=== PATIENT | female | born 1940 | race Caucasian/White ===

== ENCOUNTER 2017-01-07 21:42 | Emergency (ER) | payer MEDICARE, MEDICAID ==
[2017-01-07] MEDS ORDERED: IPRATROPIUM/ALBUTEROL 0.5-2.5 MG/3 ML AMPUL NEB ONE (22:05)
[2017-01-07] MEDS ORDERED: PREDNISONE 20 MG TABLET PO ONE (22:05)
[2017-01-07] MEDS ORDERED: ALBUTEROL SULFATE 0.083% NEB 2.5 MG/3 ML AMPUL NEB SCH (22:20)
[2017-01-07] MEDS ORDERED: BENZONATATE 100 MG CAPSULE PO ONE (23:41)
[2017-01-07] MEDS ORDERED: ALBUTEROL SULFATE HFA (90 MCG/PUFF) 8 GM MDI (1 MDI/ER DISP) IH PRN (23:41)
--- NOTE | 2017-01-07 23:45 | ER Document Report ---
ED General - General Chief Complaint: Productive Cough Stated Complaint: COUGH Notes: Patient is a 76-year-old female with past history of lupus currently immune suppressed on prednisone who presents with 3 days of nasal congestion, postnasal drip, and a productive cough. States that the cough became worse today which prompted her to come to the emergency department. States she's had similar symptoms in the past when she has had upper respiratory illnesses. She has not tried anything to improve her symptoms. Nothing has been noted to worsen her symptoms. She was a smoker for several decades but did quit smoking approximately 2 years ago. She does not carry a diagnosis of COPD. She has not seen her primary care doctor regarding today's concerns. She denies any shortness of breath or chest pain. No vomiting, fever or altered mental status. TRAVEL OUTSIDE OF THE [place] IN LAST 30 DAYS: No - Related Data Allergies/Adverse Reactions: amoxicillin trihydrate [From Augmentin] Allergy (Verified 01/07/17 21:51) aspirin [Aspirin] Allergy (Verified 01/07/17 21:51) cephalexin monohydrate [From Keflex] Allergy (Verified 01/07/17 21:51) erythromycin base [Erythromycin Base] Allergy (Verified 01/07/17 21:51) NSAIDS (Non-Steroidal Anti-Inflamma [Nsaids] Allergy (Verified 01/07/17 21:51) Potassium Clavulanate * [From Augmentin] Allergy (Verified 01/07/17 21:51) Sulfa (Sulfonamide Antibiotics) Allergy (Verified 01/07/17 21:51) Past Medical History - General Information source: Patient - Social History Smoking Status: Former Smoker Chew tobacco use (# tins/day): No Frequency of alcohol use: Occasional Drug Abuse: None Lives with: Spouse/Significant other Family History: Reviewed & Not Pertinent Patient has suicidal ideation: No Patient has homicidal ideation: No - Past Medical History Cardiac Medical History: Reports: Hx Hypertension - when sick Pulmonary Medical History: Denies: Hx COPD Renal/ Medical History: Denies: Hx Peritoneal Dialysis GI Medical History: Reports: Hx Gastroesophageal Reflux Disease, Hx Irritable Bowel, Hx Ulcer Musculoskeltal Medical History: Reports Hx Arthritis, Reports Hx Fibromyalgia Past Surgical History: Reports: Hx Appendectomy, Hx Hysterectomy, Hx Orthopedic Surgery - back - Immunizations Hx Diphtheria, Pertussis, Tetanus Vaccination: No Review of Systems - Review of Systems Notes: Constitutional: Negative for fever. HENT: Negative for sore throat. Eyes: Negative for visual changes. Cardiovascular: Negative for chest pain. Respiratory: Negative for shortness of breath. Positive for cough Gastrointestinal: Negative for abdominal pain, vomiting or diarrhea. Genitourinary: Negative for dysuria. Musculoskeletal: Negative for back pain. Skin: Negative for rash. Neurological: Negative for headaches, weakness or numbness. 10 point ROS negative except as marked above and in HPI. Physical Exam - Vital signs Vitals: Temp Pulse Resp BP Pulse Ox 97.3 F 65 24 H 154/65 H 94 01/07/17 21:49 01/07/17 21:49 01/07/17 21:49 01/07/17 21:49 01/07/17 21:49 Patient was no longer tachypneic at time of assessment, respiratory rate was 14 Interpretation: Normal Notes: PHYSICAL EXAMINATION: GENERAL: Well-appearing, well-nourished and in no acute distress. HEAD: Atraumatic, normocephalic. EYES: Pupils equal round and reactive to light, extraocular movements intact, sclera anicteric, conjunctiva are normal. ENT: nares patent, oropharynx clear without exudates. Moist mucous membranes. NECK: Normal range of motion, supple without lymphadenopathy LUNGS: Expiratory wheezing in all lung mora without diminished air movement. No respiratory distress. No tachypnea. HEART: Regular rate and rhythm without murmurs ABDOMEN: Soft, nontender, normoactive bowel sounds. No guarding, no rebound. No masses appreciated. EXTREMITIES: Normal range of motion, no pitting or edema. No cyanosis. NEUROLOGICAL: No focal neurological deficits. Moves all extremities spontaneously and on command. PSYCH: Normal mood, normal affect. SKIN: Warm, Dry, normal turgor, no rashes or lesions noted. Course - Re-evaluation Re-evalutation: 01/07/17 23:42 Patient presents with a mild productive cough, nasal congestion and postnasal drip for the past 3 days. She has no known or diagnosed history of obstructive lung disease although was a smoker up until 2 years ago. Lung exam shows scattered wheezes in all lung mora but in no respiratory distress. Vitals within normal limits at time of my assessment. Chest x-ray clear without evidence of pneumonia. Patient's overall extremely well in appearance, laughing with me during examination. She was started on albuterol inhaler, a five-day course of prednisone given her apparent wheezing on exam and a suspect she has a likely underlying component of COPD. She also be given Tessalon Perles. At this time will discharge with return precautions and follow-up recommendations. Verbal discharge instructions given a the bedside and opportunity for questions given. Medication warnings reviewed. Patient is in agreement with this plan and has verbalized understanding of return precautions and the need for primary care follow-up in the next 24-72 hours. - Vital Signs Vital signs: Temp Pulse Resp BP Pulse Ox 97.5 F 70 18 152/65 H 93 01/08/17 00:03 01/08/17 00:03 01/08/17 00:03 01/08/17 00:03 01/08/17 00:03 - Diagnostic Test Radiology reviewed: Image reviewed, Reports reviewed Radiology results interpreted by me: 01/07/17 23:43 Chest x-ray: No acute infiltrate - EKG Interpretation by Me Additional EKG results interpreted by me: 01/07/17 23:43 Sinus rhythm. Rate 66. No ST elevations or depressions. QTC is 436. Discharge - Discharge Clinical Impression: Wheezing Upper respiratory infection Qualifiers: URI type: unspecified URI Qualified Code(s): J06.9 - Acute upper respiratory infection, unspecified Condition: Good Disposition: HOME, SELF-CARE Additional Instructions: Your symptoms are likely related to a viral infection. You also likely have a component of underlying chronic obstructive lung disease. You are being started a course of steroids and then should return to your normal dose of daily prednisone. Please also use albuterol inhaler every 2-4 hours as needed for shortness of breath. Please be sure to use the spacer with the albuterol inhaler. You can use the Tessalon Perles as prescribed for persistent coughing. Please return if you develop worsening shortness of breath, vomiting , fever greater than 101F, pass out, or have any other symptoms that are worrisome to you. Prescriptions: Benzonatate [Tessalon Perle 100 mg Capsule] 100 mg PO Q8HP PRN #40 cap PRN Reason: Prednisone [Deltasone 20 mg Tablet] 3 tab PO DAILY 5 Days Referrals: NIKKI VELOZ MD [Primary Care Provider] - Follow up in 3-5 days
[2017-01-08 00:23] VITALS: BP 152/65
--- NOTE | 2017-01-08 08:35 | EKG REPORT ---
SEVERITY:- ABNORMAL ECG - SINUS RHYTHM CONSIDER LEFT VENTRICULAR HYPERTROPHY PROBABLE INFERIOR INFARCT, OLD : Confirmed by: Ashia Doshi 08-Jan-2017 08:34:23
== END 2017-01-08 00:23 | disposition home or self-care (01) ==
LOC: ER 21:42
DX: J06.9 Acute upper respiratory infection, unspecified (principal); R06.2 Wheezing; R09.81 Nasal congestion; Z88.0 Allergy status to penicillin; Z88.6 Allergy status to analgesic agent; Z88.3 Allergy status to other anti-infective agents; Z88.2 Allergy status to sulfonamides; Z90.710 Acquired absence of both cervix and uterus; Z87.891 Personal history of nicotine dependence
CPT/HCPCS: 93005; 94640; 99284; 71020; 93010; A9270 ×3; J3490; J7512

== ENCOUNTER → 2017-01-15 | Outpatient (CLI) | payer MEDICARE, MEDICAID | LOC: OD 12:26 | PROVIDERS: ATTEND Family Medicine | DX: R05 Cough (principal) | CPT/HCPCS: 71020 ==

== ENCOUNTER 2018-03-30 16:05 | Emergency (ER) | payer MEDICARE, MEDICAID ==
--- NOTE | 2018-03-30 16:38 | ER Document Report ---
ED Medical Screen (RME) - General Chief Complaint: Urinary Retention Stated Complaint: URINARY ISSUE, SIDE PAIN Time Seen by Provider: 03/30/18 16:38 Mode of Arrival: Ambulatory Information source: Patient Notes: 77-year-old female presents to the emergency room with complaints of decreased urine output. She denies fever, chills, nausea vomiting. Patient does not appear in any significant distress in the ER. TRAVEL OUTSIDE OF THE [place] IN LAST 30 DAYS: No - Related Data Allergies/Adverse Reactions: amoxicillin trihydrate [From Augmentin] Allergy (Verified 03/30/18 16:06) aspirin [Aspirin] Allergy (Verified 03/30/18 16:06) cephalexin monohydrate [From Keflex] Allergy (Verified 03/30/18 16:06) erythromycin base [Erythromycin Base] Allergy (Verified 03/30/18 16:06) NSAIDS (Non-Steroidal Anti-Inflamma [Nsaids] Allergy (Verified 03/30/18 16:06) Potassium Clavulanate * [From Augmentin] Allergy (Verified 03/30/18 16:06) Sulfa (Sulfonamide Antibiotics) Allergy (Verified 03/30/18 16:06) Past Medical History - Past Medical History Cardiac Medical History: Reports: Hx Hypertension - when sick Pulmonary Medical History: Denies: Hx COPD Renal/ Medical History: Denies: Hx Peritoneal Dialysis GI Medical History: Reports: Hx Gastroesophageal Reflux Disease, Hx Irritable Bowel, Hx Ulcer Musculoskeltal Medical History: Reports Hx Arthritis, Reports Hx Fibromyalgia Past Surgical History: Reports: Hx Appendectomy, Hx Hysterectomy, Hx Orthopedic Surgery - back - Immunizations Hx Diphtheria, Pertussis, Tetanus Vaccination: No Physical Exam - Vital signs Vitals: Temp Pulse Resp BP Pulse Ox 97.9 F 63 18 151/78 H 99 03/30/18 16:15 03/30/18 16:15 03/30/18 16:15 03/30/18 16:15 03/30/18 16:15 Course - Vital Signs Vital signs: Temp Pulse Resp BP Pulse Ox 97.9 F 63 18 151/78 H 99 03/30/18 16:15 03/30/18 16:15 03/30/18 16:15 03/30/18 16:15 03/30/18 16:15 Doctor's Discharge - Discharge Referrals: NIKKI VELOZ MD [Primary Care Provider] - Follow up as needed
[2018-03-30 17:40] LABS: ALANINE AMINOTRANSFERASE 24 U/L (9-52); ALKALINE PHOSPHATASE 37 U/L (38-126); ANION GAP 12 (5-19); ASPARTATE AMINO TRANSFERASE 24 U/L (14-36); BILIRUBIN,DIRECT 0.3 mg/dL (0.0-0.4); BILIRUBIN,TOTAL 0.3 mg/dL (0.2-1.3); BLOOD UREA NITROGEN 15 mg/dL (7-20); CALCIUM 9.4 mg/dL (8.4-10.2); CARBON DIOXIDE 28 mmol/L (22-30); CHLORIDE 96 mmol/L (98-107); GLUCOSE 122 mg/dL (75-110); POTASSIUM 4.1 mmol/L (3.6-5.0); SODIUM 135.9 mmol/L (137-145); TOTAL PROTEIN 6.7 g/dL (6.3-8.2)
[2018-03-30 17:58] LABS: ABSOLUTE BASOPHILS # (AUTO) 0.1 10^3/uL (0.0-0.2); ABSOLUTE EOSINOPHILS # (AUTO) 0.1 10^3/uL (0.0-0.6); ABSOLUTE LYMPHOCYTES (AUTO) 1.8 10^3/uL (0.5-4.7); ABSOLUTE MONOCYTES (AUTO) 0.7 10^3/uL (0.1-1.4); ABSOLUTE NEUT (AUTO) 3.3 10^3/uL (1.7-8.2); BASOPHILS % (AUTO) 1.7 % (0-2); HEMATOCRIT 44.7 % (36.0-47.0); HEMOGLOBIN 15.5 g/dL (12.0-15.5); LYMPHOCYTES % (AUTO) 30.3 % (13-45); MEAN CORPUSCULAR HEMOGLOBIN 32.2 pg (27.0-33.4); MEAN CORPUSCULAR HGB CONC 34.7 g/dL (32.0-36.0); MEAN CORPUSCULAR VOLUME 93 fl (80-97); MONOCYTES % (AUTO) 11.1 % (3-13); PLATELET COUNT 224 10^3/uL (150-450); RED BLOOD COUNT 4.82 10^6/uL (3.72-5.28); RED CELL DISTRIBUTION WIDTH 13.5 % (11.5-14.0); SEGMENTED NEUTROPHILS % (AUTO) 54.9 % (42-78); TOTAL CELLS COUNTED % (AUTO) 100 %
--- NOTE | 2018-03-30 18:50 | ER Document Report ---
ED GI/ <CLARA TIJERINA - Last Filed: 03/30/18 21:25> - General Mode of Arrival: Ambulatory TRAVEL OUTSIDE OF THE [place] IN LAST 30 DAYS: No <MIKE RAMOS - Last Filed: 03/30/18 21:57> - General Chief Complaint: Urinary Retention Stated Complaint: URINARY ISSUE, SIDE PAIN Time Seen by Provider: 03/30/18 16:38 Notes: 77 year old female that presents to the ED today with complaints of possible urinary retention. Patient states that she normally urinates 3-4 times a night and she did not wake up at all last night to urinate. Patient states she has been drinking her normal amount of fluids. Patient also mentions a "nagging side pain for about 2 weeks. (MIKE RAMOS) - Related Data Allergies/Adverse Reactions: amoxicillin trihydrate [From Augmentin] Allergy (Verified 03/30/18 16:06) aspirin [Aspirin] Allergy (Verified 03/30/18 16:06) cephalexin monohydrate [From Keflex] Allergy (Verified 03/30/18 16:06) erythromycin base [Erythromycin Base] Allergy (Verified 03/30/18 16:06) NSAIDS (Non-Steroidal Anti-Inflamma [Nsaids] Allergy (Verified 03/30/18 16:06) Potassium Clavulanate * [From Augmentin] Allergy (Verified 03/30/18 16:06) Sulfa (Sulfonamide Antibiotics) Allergy (Verified 03/30/18 16:06) Past Medical History - General Information source: Patient - Social History Smoking Status: Current Every Day Smoker Cigarette use (# per day): Yes Chew tobacco use (# tins/day): No Frequency of alcohol use: None Drug Abuse: None Lives with: Family Family History: Reviewed & Not Pertinent Patient has suicidal ideation: No Patient has homicidal ideation: No - Past Medical History Cardiac Medical History: Reports: Hx Atrial Fibrillation, Hx Hypertension - when sick, Other - Von Willebrand's GI Medical History: Reports: Hx Gastroesophageal Reflux Disease, Hx Irritable Bowel, Hx Ulcer Musculoskeletal Medical History: Reports Hx Arthritis, Reports Hx Fibromyalgia, Reports Other - Lupus Past Surgical History: Reports: Hx Appendectomy, Hx Hysterectomy, Hx Orthopedic Surgery - back - Immunizations Hx Diphtheria, Pertussis, Tetanus Vaccination: No <MIKE RAMOS - Last Filed: 03/30/18 21:57> Review of Systems - Review of Systems Constitutional: No symptoms reported EENT: No symptoms reported Cardiovascular: No symptoms reported Respiratory: No symptoms reported Gastrointestinal: No symptoms reported Genitourinary: See HPI, Flank pain - "nagging side pain", Retention - ? Female Genitourinary: No symptoms reported Musculoskeletal: No symptoms reported Skin: No symptoms reported Hematologic/Lymphatic: No symptoms reported Neurological/Psychological: No symptoms reported -: Yes All other systems reviewed and negative <MIKE RAMOS - Last Filed: 03/30/18 21:57> Physical Exam <CLARA TIJERINA - Last Filed: 03/30/18 21:25> <MIKE RAMOS - Last Filed: 03/30/18 21:57> - Vital signs Vitals: Temp Pulse Resp BP Pulse Ox 97.9 F 63 18 151/78 H 99 03/30/18 16:15 03/30/18 16:15 03/30/18 16:15 03/30/18 16:15 03/30/18 16:15 - Notes Notes: Physical Exam: General: Alert, appears well. HEENT: Normocephalic. Atraumatic. PERRL. Extraocular movements intact. Oropharynx clear. Neck: Supple. Non-tender. Respiratory: No respiratory distress. Clear and equal breath sounds bilaterally. Cardiovascular: Regular rate and rhythm. Abdominal: Normal Inspection. Non-tender. No distension. Normal Bowel Sounds. Back: Lower back tenderness with palpation. No deformity or step off. Extremities: Moves all four extremities. Upper extremities: Normal inspection. Normal ROM. Lower extremities: Normal inspection. No edema. Normal ROM. Neurological: Normal cognition. AAOx4. Normal speech. Psychological: Normal affect. Normal Mood. Skin: Warm. Dry. Normal color. (MIKE RAMOS) Course - Laboratory Result Diagrams: 03/30/18 17:05 03/30/18 17:05 - Diagnostic Test Radiology reviewed: Image reviewed, Reports reviewed - CT scan of the abdomen and pelvis is unremarkable with no hydronephrosis, no hydroureter, no bladder distention, Owens catheter is in the bladder, no explanation for the patient's reported symptoms of no urinary output despite adequate oral hydration. <CLARA TIJERINA - Last Filed: 03/30/18 21:25> - Laboratory Result Diagrams: 03/30/18 17:05 03/30/18 17:05 <MIKE RAMOS - Last Filed: 03/30/18 21:57> - Re-evaluation Re-evalutation: 03/30/18 21:[address] scan of abdomen and pelvis without contrast showed normal sized kidneys, no hydroureter, no hydronephrosis, no bladder distention and no explanation for her reported symptoms. CBC is normal, Chem-12 is normal, urinalysis is normal. The Owens catheter was placed and drained only 25 mL of urine. (CLARA TIJERINA) 03/30/18 20:51 Only 25 mL of urine collected with owens placement (MIKE RAMOS) - Vital Signs Vital signs: Temp Pulse Resp BP Pulse Ox 97.9 F 63 18 151/78 H 99 03/30/18 16:15 03/30/18 16:15 03/30/18 16:15 03/30/18 16:15 03/30/18 16:15 - Laboratory Laboratory results interpreted by me: 03/30/18 03/30/18 17:05 18:29 Sodium 135.9 L Chloride 96 L Glucose 122 H Alkaline Phosphatase 37 L Urine Urobilinogen 2.0 H Discharge <CLARA TIJERINA - Last Filed: 03/30/18 21:25> <MIKE RAMOS - Last Filed: 03/30/18 21:57> - Discharge Clinical Impression: Difficulty urinating Additional Instructions: Your evaluation did not show any problems with urine production. Your CBC, serum chemistries and kidney functions, and urine were all normal. While your in the emergency room with the Owens catheter, you drained about 125 mL of urine showing that you were making urine and it was going to your bladder the entire time. Keep drinking plenty of fluids. Use the urine collection hat when you go to the bathroom so that you can tell if you are actually urinating adequately. Follow-up with your doctor if any problems. RETURN TO THE EMERGENCY ROOM IF ANY NEW OR WORSENING SYMPTOMS. Referrals: NIKKI VELOZ MD [Primary Care Provider] - Follow up as needed Scribe Attestation: 03/30/18 19:40 I personally performed the services described in the documentation, reviewed and edited the documentation which was dictated to the scribe in my presence, and it accurately records my words and actions. (CLARA TIJERINA) Scribe Documentation - Scribe Written by Felipe:: Felipe Main, 03/30/2018 [id number] acting as scribe for :: Trey <MIKE RAMOS - Last Filed: 03/30/18 21:57>
[2018-03-30 18:51] LABS: APPEARANCE,URINE SLIGHTLY-CLOUDY; BILIRUBIN,URINE NEGATIVE (NEGATIVE); COLOR,URINE YELLOW; GLUCOSE, URINE NEGATIVE (NEGATIVE); KETONES,URINE NEGATIVE (NEGATIVE); LEUKOCYTE ESTERASE,URINE NEGATIVE (NEGATIVE); NITRITE,URINE NEGATIVE (NEGATIVE); PROTEIN,URINE NEGATIVE (NEGATIVE); URINE SPECIFIC GRAVITY 1.018
--- NOTE | 2018-03-30 19:51 | RADIOLOGY REPORT (SQ) ---
EXAM DESCRIPTION: CT LTD RENAL STONE PROTOCOL ON COMPLETED DATE/TIME: 03/30/2018 7:38 pm REASON FOR STUDY: Left flank pain, difficulty urinating COMPARISON: 06/22/2011 TECHNIQUE: CT scan of the abdomen and pelvis performed without intravenous or oral contrast. Images reviewed with lung, soft tissue, and bone windows. Reconstructed coronal and sagittal MPR images revi ewed. All images stored on PACS. All CT scanners at this facility use dose modulation, iterative reconstruction, and/or weight based d osing when appropriate to reduce radiation dose to as low as reasonably achievable (ALARA). [facility]: Dose Right [facility]: CareDose [facility]: Dose Right [facility]: Teradose 4D [facility]: [employer] RADIATION DOSE: CT Rad equipment meets quality standard of care and radiation dose reduction techniq ues were employed. CTDIvol: 4.8 mGy. DLP: 229 mGy-cm.mGy. LIMITATIONS: None. FINDINGS: LOWER CHEST: No acute findings. NON-CONTRASTED LIVER, SPLEEN, ADRENALS: Evaluation limited by lack of IV contrast. No identified sign ificant masses. PANCREAS: No masses. No peripancreatic inflammatory changes. GALLBLADDER: No identified stones by CT criteria. No inflammatory changes to suggest cholecystitis. RIGHT KIDNEY AND URETER: No suspicious masses. Assessment limited by lack of IV contrast. No signif icant calcifications. No hydronephrosis or hydroureter. LEFT KIDNEY AND URETER: No suspicious masses. Assessment limited by lack of IV contrast. No signifi cant calcifications. No hydronephrosis or hydroureter. AORTA AND RETROPERITONEUM: No aneurysm. No retroperitoneal masses or adenopathy. BOWEL AND PERITONEAL CAVITY: No obvious masses or inflammatory changes. No free fluid. APPENDIX: Not visualized. PELVIS, BLADDER, AND ABDOMINAL WALL:Prior hysterectomy. No free fluid. Bladder decompressed by Florentino catheter. BONES: No acute findings. OTHER: No other significant finding. IMPRESSION: NO ACUTE PROCESS IN THE ABDOMEN OR PELVIS. COMMENT: Quality ID # 436: Final reports with documentation of one or more dose reduction techniques (e.g., Automated exposure control, adjustment of the mA and/or kV according to patient size, use of iterative reconstruction technique) TECHNICAL DOCUMENTATION: JOB ID: [id number] [place]-72 2010 [employer]- All Rights Reserved Reading location - IP/workstation name: [email or web address]
[2018-03-30 21:33] VITALS: BP 151/69
== END 2018-03-30 21:51 | disposition home or self-care (01) ==
LOC: ER 16:05
DX: R39.9 Unspecified symptoms and signs involving the genitourinary system (principal); R10.9 Unspecified abdominal pain; I10 Essential (primary) hypertension; Z88.0 Allergy status to penicillin; Z88.6 Allergy status to analgesic agent; Z88.1 Allergy status to other antibiotic agents; Z88.8 Allergy status to other drugs, medicaments and biological substances; Z88.2 Allergy status to sulfonamides; Z90.49 Acquired absence of other specified parts of digestive tract
CPT/HCPCS: 36415; 76380; 80053; 81001; 85025; 87086; 99284

== ENCOUNTER 2018-11-26 09:41 | Inpatient (IN) | payer MEDICARE, MEDICAID ==
[2018-11-26] MEDS ORDERED: METHYLPREDNISOLONE INJ 125 MG/2 ML SDV IV ONE (09:56)
[2018-11-26] MEDS ORDERED: IPRATROPIUM/ALBUTEROL 0.5-2.5 MG/3 ML AMPUL NEB ONE ×2 (09:56→10:44)
[2018-11-26] MEDS ORDERED: MAGNESIUM SULFATE/D5W 1 GM/100 ML RTUPB IV ONE (09:56)
[2018-11-26 10:17] LABS: ABSOLUTE BASOPHILS # (AUTO) 0.1 10^3/uL (0.0-0.2); ABSOLUTE EOSINOPHILS # (AUTO) 0.2 10^3/uL (0.0-0.6); ABSOLUTE LYMPHOCYTES (AUTO) 1.3 10^3/uL (0.5-4.7); ABSOLUTE MONOCYTES (AUTO) 0.8 10^3/uL (0.1-1.4); ABSOLUTE NEUT (AUTO) 6.9 10^3/uL (1.7-8.2); EOSINOPHILS % (AUTO) 2.6 % (0-6); HEMATOCRIT 38.7 % (36.0-47.0); HEMOGLOBIN 13.4 g/dL (12.0-15.5); LYMPHOCYTES % (AUTO) 14.2 % (13-45); MEAN CORPUSCULAR HEMOGLOBIN 31.6 pg (27.0-33.4); MEAN CORPUSCULAR HGB CONC 34.6 g/dL (32.0-36.0); MEAN CORPUSCULAR VOLUME 91 fl (80-97); MONOCYTES % (AUTO) 8.2 % (3-13); PLATELET COUNT 246 10^3/uL (150-450); RED BLOOD COUNT 4.24 10^6/uL (3.72-5.28); RED CELL DISTRIBUTION WIDTH 13.4 % (11.5-14.0); TOTAL CELLS COUNTED % (AUTO) 100 %; WHITE BLOOD COUNT 9.3 10^3/uL (4.0-10.5)
--- NOTE | 2018-11-26 10:42 | RADIOLOGY REPORT (SQ) ---
EXAM DESCRIPTION: CHEST SINGLE VIEW COMPLETED DATE/TIME: 11/26/2018 10:21 am REASON FOR STUDY: sob COMPARISON: 01/07/2017. EXAM PARAMETERS: NUMBER OF VIEWS: One view. TECHNIQUE: Single frontal radiographic view of the chest acquired. RADIATION DOSE: NA LIMITATIONS: None. FINDINGS: LUNGS AND PLEURA: Chronic interstitial prominence. No focal infiltrates, masses or pneumo thorax. No pleural effusion. MEDIASTINUM AND HILAR STRUCTURES: No masses. Contour normal. HEART AND VASCULAR STRUCTURES: Heart normal in size. Normal vasculature. BONES: Marked degenerative changes in the spine with scoliosis. No acute findings. HARDWARE: None in the chest. OTHER: No other significant finding. IMPRESSION: STABLE CHRONIC CHANGES. NO ACUTE RADIOGRAPHIC FINDING IN THE CHEST. TECHNICAL DOCUMENTATION: JOB ID: [id number] [employer]- All Rights Reserved Reading location - IP/workstation name: [email or web address]
[2018-11-26] MEDS ORDERED: TERBUTALINE SULFATE INJ/PF 1 MG/1 ML SDV SUBCUT ONE (10:44)
[2018-11-26 11:04] LABS: VENOUS BLOOD BASE EXCESS 3.4 mmol/L; VENOUS BLOOD HCO3 29.4 mmol/L (20-32); VENOUS BLOOD PCO2 50.1 mmHg (35-63); VENOUS BLOOD PH 7.39 (7.30-7.42)
[2018-11-26 11:26] LABS: ALANINE AMINOTRANSFERASE 43 U/L (9-52); ALBUMIN 3.7 g/dL (3.5-5.0); ALKALINE PHOSPHATASE 71 U/L (38-126); ANION GAP 10 (5-19); ASPARTATE AMINO TRANSFERASE 34 U/L (14-36); BILIRUBIN,DIRECT 0.4 mg/dL (0.0-0.4); BILIRUBIN,TOTAL 0.6 mg/dL (0.2-1.3); BLOOD UREA NITROGEN 25 mg/dL (7-20); CALCIUM 9.1 mg/dL (8.4-10.2); CARBON DIOXIDE 26 mmol/L (22-30); CHLORIDE 92 mmol/L (98-107); GLUCOSE 112 mg/dL (75-110); POTASSIUM 4.5 mmol/L (3.6-5.0); SODIUM 127.8 mmol/L (137-145)
[2018-11-26] MEDS ORDERED: LEVALBUTEROL HCL NEB 1.25 MG/3 ML AMPUL NEB PRN (11:33)
[2018-11-26 13:01] LABS: ARTERIAL BLOOD BASE EXCESS 3.7 mmol/L; ARTERIAL BLOOD H2CO3 1.23 mmol/L (1.05-1.35); ARTERIAL BLOOD HCO3 27.9 mmol/L (20-24); ARTERIAL BLOOD O2 SATURATION 98.2 % (94-98); ARTERIAL BLOOD PCO2 40.9 mmHg (35-45); ARTERIAL BLOOD PH 7.45 (7.35-7.45); ARTERIAL BLOOD PO2 109.5 mmHg (80-100); ARTERIAL BLOOD TOTAL CO2 29.2 mmol/L (21-25)
[2018-11-26 13:03] LABS: ARTERIAL BLOOD FIO2 2L
[2018-11-26 13:09] LABS: INTERNATIONAL RATION (INR) 0.99; PROTHROMBIN TIME 13.6 SEC (11.4-15.4)
[2018-11-26 13:37] LABS: CREATINE KINASE MB 2.3 ng/mL (<4.55); TROPONIN I 0.02 ng/mL
--- NOTE | 2018-11-26 13:49 | ER Document Report ---
ED General - General Chief Complaint: Breathing Difficulty Stated Complaint: DIFFICULTY BREATHING Time Seen by Provider: 11/26/18 09:52 Primary Care Provider: NIKKI VELOZ MD [Primary Care Provider] - Follow up as needed TRAVEL OUTSIDE OF THE [place] IN LAST 30 DAYS: No - HPI Patient complains to provider of: Difficulty reading Notes: Patient coming in for evaluation of difficulty in breathing. Patient states has a history of COPD states increased shortness of breath ongoing for the last few weeks. Patient states compliance with her otherwise her home medications. Denies any fevers chills states productive cough. Patient upon evaluation was found to be hypoxic with SPO2 in low 80s. Patient denies any home oxygen use. Denies recent travel denies chest pain denies abdominal pain. - Related Data Allergies/Adverse Reactions: amoxicillin trihydrate [From Augmentin] Allergy (Verified 11/26/18 10:19) aspirin [Aspirin] Allergy (Verified 11/26/18 10:19) cephalexin monohydrate [From Keflex] Allergy (Verified 11/26/18 10:19) erythromycin base [Erythromycin Base] Allergy (Verified 11/26/18 10:19) NSAIDS (Non-Steroidal Anti-Inflamma [Nsaids] Allergy (Verified 11/26/18 10:19) Potassium Clavulanate * [From Augmentin] Allergy (Verified 11/26/18 10:19) Sulfa (Sulfonamide Antibiotics) Allergy (Verified 11/26/18 10:19) Past Medical History - Social History Smoking Status: Current Every Day Smoker Chew tobacco use (# tins/day): No Frequency of alcohol use: None Family History: Reviewed & Not Pertinent Patient has suicidal ideation: No Patient has homicidal ideation: No - Past Medical History Cardiac Medical History: Reports: Hx Atrial Fibrillation, Hx Hypertension - when sick Pulmonary Medical History: Denies: Hx COPD Renal/ Medical History: Denies: Hx Peritoneal Dialysis GI Medical History: Reports: Hx Gastroesophageal Reflux Disease, Hx Irritable Bowel, Hx Ulcer Musculoskeletal Medical History: Reports Hx Arthritis, Reports Hx Fibromyalgia Past Surgical History: Reports: Hx Appendectomy, Hx Hysterectomy, Hx Orthopedic Surgery - back - Immunizations Hx Diphtheria, Pertussis, Tetanus Vaccination: No Review of Systems - Review of Systems Constitutional: No symptoms reported EENT: No symptoms reported Cardiovascular: No symptoms reported Respiratory: Cough, Short of breath, Wheezing Gastrointestinal: No symptoms reported Genitourinary: No symptoms reported Female Genitourinary: No symptoms reported Musculoskeletal: No symptoms reported Skin: No symptoms reported Hematologic/Lymphatic: No symptoms reported Neurological/Psychological: No symptoms reported -: Yes All other systems reviewed and negative Physical Exam - Vital signs Vitals: Temp Pulse Resp BP Pulse Ox 97.6 F 62 24 H 160/83 H 83 L 11/26/18 09:46 11/26/18 09:46 11/26/18 09:46 11/26/18 09:46 11/26/18 09:46 Interpretation: Hypoxic, Tachypneic Notes: Patient speaking approximately 3-4 word sentences - General General appearance: Appears well, Alert - HEENT Head: Normocephalic, Atraumatic Eyes: Normal Pupils: PERRL - Respiratory Respiratory status: Respiratory distress Chest status: Nontender, Accessory muscle use Breath sounds: Wheezing Chest palpation: Normal - Cardiovascular Rhythm: Regular Heart sounds: Normal auscultation Murmur: No - Abdominal Inspection: Normal Distension: No distension Bowel sounds: Normal Tenderness: Nontender Organomegaly: No organomegaly - Back Back: Normal, Nontender - Extremities General upper extremity: Normal inspection, Nontender, Normal color, Normal ROM, Normal temperature General lower extremity: Normal inspection, Nontender, Normal color, Normal ROM, Normal temperature, Normal weight bearing. No: Mio's sign - Neurological Neuro grossly intact: Yes Cognition: Normal Orientation: AAOx4 Sar[place] Coma Scale Eye Opening: Spontaneous [place] Coma Scale Verbal: Oriented [place] Coma Scale Motor: Obeys Commands Saravanan Coma Scale Total: 15 Speech: Normal Motor strength normal: LUE, RUE, LLE, RLE Sensory: Normal - Psychological Associated symptoms: Normal affect, Normal mood - Skin Skin Temperature: Warm Skin Moisture: Dry Skin Color: Normal Course - Re-evaluation Re-evalutation: 11/26/18 13:48 Patient after breathing treatments revealing a magnesium requiring BiPAP to help out with her breathing. After BiPAP patient did have some improvement. Chest x-rays not show any signs of failure or pneumonia. Discussed the patient's case with PCP pending troponin if negative will admit to the IMCU. - Vital Signs Vital signs: Temp Pulse Resp BP Pulse Ox 97.6 F 62 25 H 169/87 H 98 11/26/18 09:46 11/26/18 09:46 11/26/18 13:01 11/26/18 13:01 11/26/18 13:01 - Laboratory Result Diagrams: 11/26/18 10:00 11/26/18 10:52 Laboratory results interpreted by me: 11/26/18 11/26/18 10:52 12:30 ABG pO2 109.5 H ABG HCO3 27.9 H ABG Total CO2 29.2 H ABG O2 Saturation 98.2 H Sodium 127.8 L Chloride 92 L BUN 25 H Glucose 112 H Total Protein 6.0 L Critical Care Note - Critical Care Note Total time excluding time spent on procedures (mins): 35 Comments: Multiple evaluation for patient with story distress hypoxia requiring BiPAP Discharge - Discharge Clinical Impression: COPD (chronic obstructive pulmonary disease), Lupus (systemic lupus erythematosus), Von Willebrand disease, Respiratory distress with hypoxia Condition: Stable Disposition: ADMITTED INPATIENT Admitting Provider: [facility] Admitted: IMCU Referrals: NIKKI VELOZ MD [Primary Care Provider] - Follow up as needed
[2018-11-26 14:08] LABS: ADD MANUAL MICROSCOPIC YES; APPEARANCE,URINE CLEAR; BILIRUBIN,URINE NEGATIVE (NEGATIVE); COLOR,URINE LIGHT YELLOW; GLUCOSE, URINE NEGATIVE (NEGATIVE); KETONES,URINE NEGATIVE (NEGATIVE); LEUKOCYTE ESTERASE,URINE NEGATIVE (NEGATIVE); NITRITE,URINE NEGATIVE (NEGATIVE); PROTEIN,URINE NEGATIVE (NEGATIVE); UROBILINOGEN,URINE NEGATIVE mg/dL (<2.0)
[2018-11-26 14:09] LABS: RBC,URINE RARE /HPF
[2018-11-26] MEDS ORDERED: ACETAMINOPHEN 325 MG TABLET PO PRN (14:27)
[2018-11-26] MEDS ORDERED: NORMAL SALINE 1000 ML 1,000 ML IV PRN (14:27)
[2018-11-26] MEDS: LOSARTAN POTASSIUM 50 MG TABLET PO SCH (17:44)
[2018-11-26] MEDS: DICYCLOMINE HCL 10 MG CAPSULE PO SCH (17:44)
--- NOTE | 2018-11-26 19:25 | PDOC H&P ---
History of Present Illness Admission Date/PCP: 11/26/18 14:02 NIKKI VELOZ MD Patient complains of: Shortness of the breath History of Present Illness: SKY CENTENO is a 78 year old female This is a 78-year-old female with a history of the COPD history of the lupus history of the chronic A. fib history of the von Willebrand's disease osteoarthritis and multiple other issues came to the emergency department with the complaints with difficulty in breathing for last 2 weeks and in the emergency department patient have expiratory wheezing and patient O2 sat is 80% put on a BiPAP and patient is given nebulizer treatment and also Solu-Medrol Patients feel better after the treatments Patients denied any chest pain Patient's chest x-ray is all stable Patient was recently diagnosed with the allergies sinus last month was giving the antibiotic amoxicillin and felt better but this is all that happened again for the last couple of weeks Patient usually see a Dr. Easton plant changer for the systemic lupus and currently doing well Patient seen the cardiology for the A. fib and a not a candidate for any anticoagulations Patient see oncology Dr. Alves for the von Willebrand's disease At this point patient admitting for the COPD acute exacerbations Past Medical History Cardiac Medical History: Reports: Atrial Fibrillation, Hypertension - when sick Pulmonary Medical History: Reports: Chronic Obstructive Pulmonary Disease (COPD) Neurological Medical History: Reports: Ischemic CVA GI Medical History: Reports: Gastroesophageal Reflux Disease Musculoskeltal Medical History: Reports: Arthritis, Fibromyalgia Musculoskeletal History Note: Systemic lupus Hematology History Note: Von Willebrand Past Surgical History Past Surgical History: Reports: Appendectomy, Hysterectomy, Orthopedic Surgery - back Social History Smoking Status: Current Every Day Smoker Frequency of Alcohol Use: None Hx Recreational Drug Use: No Hx Prescription Drug Abuse: No Family History Family History: Reviewed & Not Pertinent Parental Family History Reviewed: Yes Children Family History Reviewed: Yes Sibling(s) Family History Reviewed.: Yes Medication/Allergy Allergies/Adverse Reactions: amoxicillin trihydrate [From Augmentin] Allergy (Verified 11/26/18 10:19) aspirin [Aspirin] Allergy (Verified 11/26/18 10:19) cephalexin monohydrate [From Keflex] Allergy (Verified 11/26/18 10:19) erythromycin base [Erythromycin Base] Allergy (Verified 11/26/18 10:19) NSAIDS (Non-Steroidal Anti-Inflamma [Nsaids] Allergy (Verified 11/26/18 10:19) Potassium Clavulanate * [From Augmentin] Allergy (Verified 11/26/18 10:19) Sulfa (Sulfonamide Antibiotics) Allergy (Verified 11/26/18 10:19) Review of Systems Constitutional: ABSENT: chills, fever(s), headache(s), weight gain, weight loss Eyes: ABSENT: visual disturbances Ears: ABSENT: hearing changes Cardiovascular: PRESENT: dyspnea on exertion. ABSENT: chest pain, edema, orthropnea, palpitations Respiratory: PRESENT: cough, dyspnea, sputum. ABSENT: hemoptysis Gastrointestinal: ABSENT: abdominal pain, constipation, diarrhea, hematemesis, hematochezia, nausea, vomiting Genitourinary: ABSENT: dysuria, hematuria Musculoskeletal: ABSENT: joint swelling Integumentary: ABSENT: rash, wounds Neurological: ABSENT: abnormal gait, abnormal speech, confusion, dizziness, focal weakness, syncope Psychiatric: ABSENT: anxiety, depression, homidical ideation, suicidal ideation Endocrine: ABSENT: cold intolerance, heat intolerance, menstrual abnormalities, polydipsia, polyuria Hematologic/Lymphatic: ABSENT: easy bleeding, easy bruising, lymphadenopathy Physical Exam Vital Signs: Temp Pulse Resp BP Pulse Ox 97.6 F 66 12 169/87 H 95 11/26/18 09:46 11/26/18 14:14 11/26/18 14:14 11/26/18 13:01 11/26/18 14:14 General appearance: PRESENT: no acute distress, well-developed, well-nourished Head exam: PRESENT: atraumatic, normocephalic Eye exam: PRESENT: conjunctiva pink, EOMI, PERRLA. ABSENT: scleral icterus Ear exam: PRESENT: normal external ear exam Mouth exam: PRESENT: moist, tongue midline Neck exam: PRESENT: full ROM. ABSENT: carotid bruit, JVD, lymphadenopathy, thyromegaly Respiratory exam: PRESENT: decreased breath sounds, wheezes Cardiovascular exam: PRESENT: RRR. ABSENT: diastolic murmur, rubs, systolic murmur Vascular exam: PRESENT: normal capillary refill GI/Abdominal exam: PRESENT: normal bowel sounds, soft. ABSENT: distended, guard ing, mass, organolmegaly, rebound, tenderness Rectal exam: PRESENT: deferred Extremities exam: ABSENT: pedal edema Neurological exam: PRESENT: alert, awake, oriented to person, oriented to place, oriented to time, oriented to situation, CN II-XII grossly intact. ABSENT: motor sensory deficit Psychiatric exam: PRESENT: appropriate affect, normal mood. ABSENT: homicidal ideation, suicidal ideation Skin exam: PRESENT: dry, intact, warm. ABSENT: cyanosis, rash Results Laboratory Results: 11/26/18 10:00 11/26/18 10:52 11/26/18 11/26/18 11/26/18 10:00 10:00 10:52 WBC 9.3 RBC 4.24 Hgb 13.4 Hct 38.7 MCV 91 MCH 31.6 MCHC 34.6 RDW 13.4 Plt Count 246 Seg Neutrophils % 74.0 Lymphocytes % 14.2 Monocytes % 8.2 Eosinophils % 2.6 Basophils % 1.0 Absolute Neutrophils 6.9 Absolute Lymphocytes 1.3 Absolute Monocytes 0.8 Absolute Eosinophils 0.2 Absolute Basophils 0.1 Carbonic Acid HCO3/H2CO3 Ratio ABG pH ABG pCO2 ABG pO2 ABG HCO3 ABG O2 Saturation ABG Base Excess VBG pH VBG pCO2 VBG HCO3 VBG Base Excess FiO2 Sodium Cancelled Potassium Cancelled Chloride Cancelled Carbon Dioxide Cancelled Anion Gap Cancelled BUN Cancelled Creatinine Cancelled Est GFR ( Amer) Cancelled Est GFR (Non-Af Amer) Cancelled Glucose Cancelled Lactic Acid 1.2 Calcium Cancelled Total Bilirubin Cancelled AST Cancelled ALT Cancelled Alkaline Phosphatase Cancelled Total Protein Cancelled Albumin Cancelled Urine Color Urine Appearance Urine pH Ur Specific [place] Urine Protein Urine Glucose (UA) Urine Ketones Urine Blood Urine Nitrite Ur Leukocyte Esterase 11/26/18 11/26/18 11/26/18 10:52 10:52 12:30 WBC RBC Hgb Hct MCV MCH MCHC RDW Plt Count Seg Neutrophils % Lymphocytes % Monocytes % Eosinophils % Basophils % Absolute Neutrophils Absolute Lymphocytes Absolute Monocytes Absolute Eosinophils Absolute Basophils Carbonic Acid 1.23 HCO3/H2CO3 Ratio 22:1 ABG pH 7.45 ABG pCO2 40.9 ABG pO2 109.5 H ABG HCO3 27.9 H ABG O2 Saturation 98.2 H ABG Base Excess 3.7 VBG pH 7.39 VBG pCO2 50.1 VBG HCO3 29.4 VBG Base Excess 3.4 FiO2 2L Sodium 127.8 L Potassium 4.5 Chloride 92 L Carbon Dioxide 26 Anion Gap 10 BUN 25 H Creatinine 0.52 Est GFR ( Amer) > 60 Est GFR (Non-Af Amer) > 60 Glucose 112 H Lactic Acid Calcium 9.1 Total Bilirubin 0.6 AST 34 ALT 43 Alkaline Phosphatase 71 Total Protein 6.0 L Albumin 3.7 Urine Color Urine Appearance Urine pH Ur Specific [place] Urine Protein Urine Glucose (UA) Urine Ketones Urine Blood Urine Nitrite Ur Leukocyte Esterase 11/26/18 12:56 WBC RBC Hgb Hct MCV MCH MCHC RDW Plt Count Seg Neutrophils % Lymphocytes % Monocytes % Eosinophils % Basophils % Absolute Neutrophils Absolute Lymphocytes Absolute Monocytes Absolute Eosinophils Absolute Basophils Carbonic Acid HCO3/H2CO3 Ratio ABG pH ABG pCO2 ABG pO2 ABG HCO3 ABG O2 Saturation ABG Base Excess VBG pH VBG pCO2 VBG HCO3 VBG Base Excess FiO2 Sodium Potassium Chloride Carbon Dioxide Anion Gap BUN Creatinine Est GFR ( Amer) Est GFR (Non-Af Amer) Glucose Lactic Acid Calcium Total Bilirubin AST ALT Alkaline Phosphatase Total Protein Albumin Urine Color LIGHT YELLOW Urine Appearance CLEAR Urine pH 6.0 Ur Specific [place] 1.010 Urine Protein NEGATIVE Urine Glucose (UA) NEGATIVE Urine Ketones NEGATIVE Urine Blood NEGATIVE Urine Nitrite NEGATIVE Ur Leukocyte Esterase NEGATIVE 11/26/18 11/26/18 10:00 12:40 CK-MB (CK-2) 2.30 Troponin I Cancelled 0.020 NT-Pro-B Natriuret Pep Cancelled Impressions: Chest X-Ray 11/26/18 09:55 IMPRESSION: STABLE CHRONIC CHANGES. NO ACUTE RADIOGRAPHIC FINDING IN THE CHEST. Assessment & Plan - Diagnosis (1) COPD (chronic obstructive pulmonary disease) Qualifiers: COPD type: COPD with acute exacerbation Qualified Code(s): J44.1 - Chronic obstructive pulmonary disease with (acute) exacerbation Is this a current diagnosis for this admission?: Yes Plan: Admit the patient in IMCU Start the patient on Solu-Medrol Xopenex nebulizer treatments Sputum culture (2) Chronic a-fib Is this a current diagnosis for this admission?: Yes Plan: Currently all stable continues to current medications (3) Lupus (systemic lupus erythematosus) Qualifiers: Systemic lupus erythematosus organ involvement: unspecified Is this a current diagnosis for this admission?: Yes Plan: Clear all stable (4) Von Willebrand disease Is this a current diagnosis for this admission?: Yes Plan: Patient is currently see the deck lid fitter currently all stable (5) Hyperlipemia Qualifiers: Hyperlipidemia type: unspecified Qualified Code(s): E78.5 - Hyperlipidemia, unspecified Is this a current diagnosis for this admission?: Yes (6) Hypertension Qualifiers: Hypertension type: essential hypertension Qualified Code(s): I10 - Essential (primary) hypertension Is this a current diagnosis for this admission?: Yes (7) Hyponatremia Is this a current diagnosis for this admission?: Yes Plan: Patient have SIADH with chronic hyponatremia We will continue to monitor - Time Time Spent: 30 to 50 Minutes Medications reviewed and adjusted accordingly: Yes Anticipated discharge: Home Within: Other - Inpatient Certification Based on my medical assessment, after consideration of the patient's comorbidities, presenting symptoms, or acuity I expect that the services needed warrant INPATIENT care.: Yes I certify that my determination is in accordance with my understanding of Medicare's requirements for reasonable and necessary INPATIENT services [42 CFR 412.3e].: Yes Medical Necessity: Significant Comorbidiites Make Outpatient Treatment Too Risky, Need For IV Fluids, Need for IV Antibiotics Post Hospital Care: D/C Ramp Boss Documentation, Other - Plan Summary Plan Summary: Admit the patient in IMCU See other MD orders
[2018-11-26 20:12] LABS: CREATINE KINASE MB 2.24 ng/mL (<4.55); TROPONIN I 0.013 ng/mL
[2018-11-26] MEDS: LEVALBUTEROL HCL NEB 1.25 MG/3 ML AMPUL NEB SCH (21:02)
--- NOTE | 2018-11-26 21:53 | EKG REPORT ---
SEVERITY:- ABNORMAL ECG - SINUS RHYTHM FIRST DEGREE AV BLOCK LOW VOLTAGE IN FRONTAL LEADS : Confirmed by: Gricelda Emery MD 26-Nov-2018 21:52:33
[2018-11-26] MEDS: METHYLPREDNISOLONE INJ 40 MG/1 ML SDV IV SCH (22:49)
[2018-11-26] MEDS: PREGABALIN 50 MG CAPSULE PO SCH (22:50)
[2018-11-26] MEDS: FAMOTIDINE 20 MG TABLET PO SCH (22:50)
[2018-11-26] MEDS: MECLIZINE HCL 12.5 MG TABLET PO SCH (22:50)
[2018-11-27] MEDS: LEVALBUTEROL HCL NEB 1.25 MG/3 ML AMPUL NEB SCH ×4 (02:11→20:30)
[2018-11-27 02:21] LABS: CREATINE KINASE MB 2.2 ng/mL (<4.55); TROPONIN I 0.015 ng/mL
[2018-11-27] MEDS: METHYLPREDNISOLONE INJ 40 MG/1 ML SDV IV SCH ×3 (06:27→21:23)
[2018-11-27] MEDS: PREGABALIN 50 MG CAPSULE PO SCH ×3 (06:28→21:23)
[2018-11-27] MEDS: MECLIZINE HCL 12.5 MG TABLET PO SCH ×3 (06:28→21:25)
--- NOTE | 2018-11-27 08:21 | PDOC PROGRESS REPORT ---
Subjective Progress Note for:: 11/27/18 Subjective:: Patient is feeling much better She is denied any chest pain denied any shortness of the breath Patient wheezing is much better Patient still continues to smoke but claims that she is going to quit it Reason For Visit: COPD ACUTE EXACERBATION Physical Exam Vital Signs: Temp Pulse Resp BP Pulse Ox 97.6 F 140 H 19 158/63 H 98 11/27/18 03:26 11/27/18 07:00 11/27/18 03:58 11/27/18 04:18 11/27/18 03:26 Intake & Output 11/26/18 11/27/18 11/28/18 06:59 06:59 06:59 Intake Total 335 Balance 335 Weight 45.6 kg General appearance: PRESENT: no acute distress, well-developed, well-nourished Head exam: PRESENT: atraumatic, normocephalic Eye exam: PRESENT: conjunctiva pink, EOMI, PERRLA. ABSENT: scleral icterus Ear exam: PRESENT: normal external ear exam Mouth exam: PRESENT: moist, tongue midline Neck exam: PRESENT: full ROM. ABSENT: carotid bruit, JVD, lymphadenopathy, thyromegaly Respiratory exam: PRESENT: clear to auscultation yasmin Cardiovascular exam: PRESENT: RRR. ABSENT: diastolic murmur, rubs, systolic murmur Vascular exam: PRESENT: normal capillary refill GI/Abdominal exam: PRESENT: normal bowel sounds, soft. ABSENT: distended, guarding, mass, organolmegaly, rebound, tenderness Rectal exam: PRESENT: deferred Neurological exam: PRESENT: alert, awake, oriented to person, oriented to place, oriented to time, oriented to situation, CN II-XII grossly intact. ABSENT: motor sensory deficit Psychiatric exam: PRESENT: appropriate affect, normal mood. ABSENT: homicidal ideation, suicidal ideation Skin exam: PRESENT: dry, intact, warm. ABSENT: cyanosis, rash Results Laboratory Results: 11/26/18 10:00 11/26/18 10:52 11/26/18 11/26/18 11/26/18 10:00 10:00 10:52 WBC 9.3 RBC 4.24 Hgb 13.4 Hct 38.7 MCV 91 MCH 31.6 MCHC 34.6 RDW 13.4 Plt Count 246 Seg Neutrophils % 74.0 Lymphocytes % 14.2 Monocytes % 8.2 Eosinophils % 2.6 Basophils % 1.0 Absolute Neutrophils 6.9 Absolute Lymphocytes 1.3 Absolute Monocytes 0.8 Absolute Eosinophils 0.2 Absolute Basophils 0.1 Carbonic Acid HCO3/H2CO3 Ratio ABG pH ABG pCO2 ABG pO2 ABG HCO3 ABG O2 Saturation ABG Base Excess VBG pH VBG pCO2 VBG HCO3 VBG Base Excess FiO2 Sodium Cancelled Potassium Cancelled Chloride Cancelled Carbon Dioxide Cancelled Anion Gap Cancelled BUN Cancelled Creatinine Cancelled Est GFR ( Amer) Cancelled Est GFR (Non-Af Amer) Cancelled Glucose Cancelled Lactic Acid 1.2 Calcium Cancelled Total Bilirubin Cancelled AST Cancelled ALT Cancelled Alkaline Phosphatase Cancelled Total Protein Cancelled Albumin Cancelled Urine Color Urine Appearance Urine pH Ur Specific [place] Urine Protein Urine Glucose (UA) Urine Ketones Urine Blood Urine Nitrite Ur Leukocyte Esterase 11/26/18 11/26/18 11/26/18 10:52 10:52 12:30 WBC RBC Hgb Hct MCV MCH MCHC RDW Plt Count Seg Neutrophils % Lymphocytes % Monocytes % Eosinophils % Basophils % Absolute Neutrophils Absolute Lymphocytes Absolute Monocytes Absolute Eosinophils Absolute Basophils Carbonic Acid 1.23 HCO3/H2CO3 Ratio 22:1 ABG pH 7.45 ABG pCO2 40.9 ABG pO2 109.5 H ABG HCO3 27.9 H ABG O2 Saturation 98.2 H ABG Base Excess 3.7 VBG pH 7.39 VBG pCO2 50.1 VBG HCO3 29.4 VBG Base Excess 3.4 FiO2 2L Sodium 127.8 L Potassium 4.5 Chloride 92 L Carbon Dioxide 26 Anion Gap 10 BUN 25 H Creatinine 0.52 Est GFR ( Amer) > 60 Est GFR (Non-Af Amer) > 60 Glucose 112 H Lactic Acid Calcium 9.1 Total Bilirubin 0.6 AST 34 ALT 43 Alkaline Phosphatase 71 Total Protein 6.0 L Albumin 3.7 Urine Color Urine Appearance Urine pH Ur Specific [place] Urine Protein Urine Glucose (UA) Urine Ketones Urine Blood Urine Nitrite Ur Leukocyte Esterase 11/26/18 12:56 WBC RBC Hgb Hct MCV MCH MCHC RDW Plt Count Seg Neutrophils % Lymphocytes % Monocytes % Eosinophils % Basophils % Absolute Neutrophils Absolute Lymphocytes Absolute Monocytes Absolute Eosinophils Absolute Basophils Carbonic Acid HCO3/H2CO3 Ratio ABG pH ABG pCO2 ABG pO2 ABG HCO3 ABG O2 Saturation ABG Base Excess VBG pH VBG pCO2 VBG HCO3 VBG Base Excess FiO2 Sodium Potassium Chloride Carbon Dioxide Anion Gap BUN Creatinine Est GFR ( Amer) Est GFR (Non-Af Amer) Glucose Lactic Acid Calcium Total Bilirubin AST ALT Alkaline Phosphatase Total Protein Albumin Urine Color LIGHT YELLOW Urine Appearance CLEAR Urine pH 6.0 Ur Specific [place] 1.010 Urine Protein NEGATIVE Urine Glucose (UA) NEGATIVE Urine Ketones NEGATIVE Urine Blood NEGATIVE Urine Nitrite NEGATIVE Ur Leukocyte Esterase NEGATIVE 11/26/18 11/26/18 11/26/18 10:00 12:40 12:40 Creatine Kinase CK-MB (CK-2) 2.30 Troponin I Cancelled 0.020 NT-Pro-B Natriuret Pep Cancelled 3650 H 11/26/18 11/26/18 11/27/18 19:30 19:30 01:24 Creatine Kinase 78 83 CK-MB (CK-2) 2.24 Troponin I 0.013 NT-Pro-B Natriuret Pep 11/27/18 01:24 Creatine Kinase CK-MB (CK-2) 2.20 Troponin I 0.015 NT-Pro-B Natriuret Pep Impressions: Chest X-Ray 11/26/18 09:55 IMPRESSION: STABLE CHRONIC CHANGES. NO ACUTE RADIOGRAPHIC FINDING IN THE CHEST. Assessment & Plan - Diagnosis (1) COPD (chronic obstructive pulmonary disease) Qualifiers: COPD type: COPD with acute exacerbation Qualified Code(s): J44.1 - Chronic obstructive pulmonary disease with (acute) exacerbation Is this a current diagnosis for this admission?: Yes Plan: Reduce the IV steroids Continues to current medications (2) Chronic a-fib Is this a current diagnosis for this admission?: Yes Plan: We will consult the Dr. Emery to rule out any underlying CHF because of the lupus (3) Lupus (systemic lupus erythematosus) Qualifiers: Systemic lupus erythematosus organ involvement: unspecified Is this a current diagnosis for this admission?: Yes Plan: Clear all stable (4) Von Willebrand disease Is this a current diagnosis for this admission?: Yes Plan: Patient is currently see the oracle ebs developer currently all stable (5) Hyperlipemia Qualifiers: Hyperlipidemia type: unspecified Qualified Code(s): E78.5 - Hyperlipidemia, unspecified Is this a current diagnosis for this admission?: Yes (6) Hypertension Qualifiers: Hypertension type: essential hypertension Qualified Code(s): I10 - Essential (primary) hypertension Is this a current diagnosis for this admission?: Yes (7) Hyponatremia Is this a current diagnosis for this admission?: Yes Plan: Patient have SIADH with chronic hyponatremia We will continue to monitor - Time Time Spent with patient: 15-24 minutes Medications reviewed and adjusted accordingly: Yes Anticipated discharge: Home Within: within 48 hours - Plan Summary Plan Summary: Continues to current medications we will repeat the lab and ABG today
[2018-11-27 09:13] LABS: ANION GAP 15 (5-19); BLOOD UREA NITROGEN 17 mg/dL (7-20); CALCIUM 10.9 mg/dL (8.4-10.2); CARBON DIOXIDE 29 mmol/L (22-30); CHLORIDE 89 mmol/L (98-107); GLUCOSE 153 mg/dL (75-110); POTASSIUM 4.4 mmol/L (3.6-5.0); SODIUM 132.9 mmol/L (137-145)
[2018-11-27 09:24] LABS: CREATINE KINASE MB 3.33 ng/mL (<4.55); TROPONIN I 0.024 ng/mL
[2018-11-27] MEDS: HYDROXYCHLOROQUINE SULFATE 200 MG TABLET PO SCH (10:08)
[2018-11-27] MEDS: FAMOTIDINE 20 MG TABLET PO SCH ×2 (10:18→21:23)
[2018-11-27] MEDS: AMLODIPINE BESYLATE 2.5 MG TABLET PO SCH (10:18)
[2018-11-27] MEDS: DOXYCYCLINE HYCLATE 100 MG TABLET PO SCH ×2 (10:19→21:23)
[2018-11-27] MEDS: LOSARTAN POTASSIUM 50 MG TABLET PO SCH ×2 (10:19→18:04)
[2018-11-27] MEDS: DICYCLOMINE HCL 10 MG CAPSULE PO SCH ×3 (10:19→18:04)
[2018-11-27] MEDS: CETIRIZINE 10 MG TABLET PO SCH (10:19)
[2018-11-27 10:34] LABS: HEMATOCRIT 42.2 % (36.0-47.0); HEMOGLOBIN 14.6 g/dL (12.0-15.5); MEAN CORPUSCULAR HEMOGLOBIN 31.4 pg (27.0-33.4); MEAN CORPUSCULAR HGB CONC 34.6 g/dL (32.0-36.0); MEAN CORPUSCULAR VOLUME 91 fl (80-97); PLATELET COUNT 255 10^3/uL (150-450); RED BLOOD COUNT 4.65 10^6/uL (3.72-5.28); RED CELL DISTRIBUTION WIDTH 12.6 % (11.5-14.0); WHITE BLOOD COUNT 17.8 10^3/uL (4.0-10.5)
[2018-11-27 11:09] LABS: ABSOLUTE LYMPHOCYTES# (MANUAL) 0.5 10^3/uL (0.5-4.7); ABSOLUTE MONOCYTES # (MANUAL) 1.1 10^3/uL (0.1-1.4); ABSOLUTE NEUTROPHILS# (MANUAL) 16.2 10^3/uL (1.7-8.2); BASOPHILS % (MANUAL) 0 % (0-2); EOSINOPHILS % (MANUAL) 0 % (0-6); LYMPHOCYTES % (MANUAL) 3 % (13-45); MONOCYTES % (MANUAL) 6 % (3-13); SEGMENTED NEUTROPHILS % (MAN) 91 % (42-78); TOTAL CELLS COUNTED 100
[2018-11-27 11:10] LABS: BURR CELLS 1+; OVALOCYTES 1+; PLATELET COMMENT ADEQUATE; POIKILOCYTOSIS 1+
[2018-11-27] MEDS ORDERED: METHYLPREDNISOLONE INJ 125 MG/2 ML SDV IV SCH ×2 (14:00)
--- NOTE | 2018-11-27 21:24 | EKG REPORT ---
SEVERITY:- ABNORMAL ECG - ATRIAL FIBRILLATION CONSIDER LEFT VENTRICULAR HYPERTROPHY BORDERLINE PROLONGED QT INTERVAL : Confirmed by: Gricelda Emery MD 27-Nov-2018 21:24:15
[2018-11-28] MEDS: LEVALBUTEROL HCL NEB 1.25 MG/3 ML AMPUL NEB SCH ×2 (01:46→08:37)
[2018-11-28] MEDS: PREGABALIN 50 MG CAPSULE PO SCH ×3 (05:25→21:16)
[2018-11-28] MEDS: METHYLPREDNISOLONE INJ 40 MG/1 ML SDV IV SCH (05:25)
[2018-11-28] MEDS: MECLIZINE HCL 12.5 MG TABLET PO SCH ×3 (05:25→21:16)
[2018-11-28 05:32] LABS: HEMATOCRIT 39.3 % (36.0-47.0); HEMOGLOBIN 13.5 g/dL (12.0-15.5); MEAN CORPUSCULAR HGB CONC 34.4 g/dL (32.0-36.0); MEAN CORPUSCULAR VOLUME 90 fl (80-97); PLATELET COUNT 212 10^3/uL (150-450); RED BLOOD COUNT 4.36 10^6/uL (3.72-5.28); RED CELL DISTRIBUTION WIDTH 12.8 % (11.5-14.0); WHITE BLOOD COUNT 21.1 10^3/uL (4.0-10.5)
[2018-11-28 05:52] LABS: ANION GAP 10 (5-19); BLOOD UREA NITROGEN 18 mg/dL (7-20); CALCIUM 9.6 mg/dL (8.4-10.2); CARBON DIOXIDE 29 mmol/L (22-30); CHLORIDE 90 mmol/L (98-107); GLUCOSE 165 mg/dL (75-110); POTASSIUM 3.9 mmol/L (3.6-5.0); SODIUM 129.1 mmol/L (137-145)
[2018-11-28 06:00] LABS: ABSOLUTE LYMPHOCYTES# (MANUAL) 1.1 10^3/uL (0.5-4.7); ABSOLUTE MONOCYTES # (MANUAL) 0.6 10^3/uL (0.1-1.4); ABSOLUTE NEUTROPHILS# (MANUAL) 19.4 10^3/uL (1.7-8.2); BASOPHILS % (MANUAL) 0 % (0-2); EOSINOPHILS % (MANUAL) 0 % (0-6); LYMPHOCYTES % (MANUAL) 5 % (13-45); MONOCYTES % (MANUAL) 3 % (3-13); SEGMENTED NEUTROPHILS % (MAN) 92 % (42-78); TOTAL CELLS COUNTED 100
[2018-11-28 06:01] LABS: PLATELET COMMENT ADEQUATE; RBC MORPHOLOGY COMMENT NORMO-CYTIC/CHROMIC; TOXIC VACUOLATION PRESENT
[2018-11-28] MEDS ORDERED: LEVALBUTEROL HCL NEB 1.25 MG/3 ML AMPUL NEB PRN (08:01)
--- NOTE | 2018-11-28 08:04 | PDOC PROGRESS REPORT ---
Subjective Progress Note for:: 11/28/18 Subjective:: Patient is currently doing well Patient is denied any wheezing no chest pain No shortness of the breath Patient's white count is elevated but patient is afebrile most likely related to the steroid patient oxygen level is stable Reason For Visit: COPD ACUTE EXACERBATION Physical Exam Vital Signs: Temp Pulse Resp BP Pulse Ox 97.3 F 104 H 22 H 162/95 H 98 11/28/18 03:41 11/28/18 03:41 11/28/18 03:41 11/28/18 03:41 11/28/18 03:41 Intake & Output 11/27/18 11/28/18 11/29/18 06:59 06:59 06:59 Intake Total 335 1505 Balance 335 1505 Weight 45.6 kg 48.6 kg General appearance: PRESENT: no acute distress, well-developed, well-nourished Head exam: PRESENT: atraumatic, normocephalic Eye exam: PRESENT: conjunctiva pink, EOMI, PERRLA. ABSENT: scleral icterus Ear exam: PRESENT: normal external ear exam Mouth exam: PRESENT: moist, tongue midline Neck exam: PRESENT: full ROM. ABSENT: carotid bruit, JVD, lymphadenopathy, thyromegaly Respiratory exam: PRESENT: clear to auscultation yasmin Cardiovascular exam: PRESENT: RRR. ABSENT: diastolic murmur, rubs, systolic murmur Vascular exam: PRESENT: normal capillary refill GI/Abdominal exam: PRESENT: normal bowel sounds, soft. ABSENT: distended, guarding, mass, organolmegaly, rebound, tenderness Rectal exam: PRESENT: deferred Extremities exam: ABSENT: pedal edema Musculoskeletal exam: PRESENT: ambulatory Neurological exam: PRESENT: alert, awake, oriented to person, oriented to place, oriented to time, oriented to situation, CN II-XII grossly intact. ABSENT: motor sensory deficit Psychiatric exam: PRESENT: appropriate affect, normal mood. ABSENT: homicidal ideation, suicidal ideation Skin exam: PRESENT: dry, intact, warm. ABSENT: cyanosis, rash Results Laboratory Results: 11/28/18 05:04 11/28/18 05:04 11/27/18 11/27/18 11/27/18 08:15 08:15 10:15 WBC Cancelled 17.8 H RBC Cancelled 4.65 Hgb Cancelled 14.6 Hct Cancelled 42.2 MCV Cancelled 91 MCH Cancelled 31.4 MCHC Cancelled 34.6 RDW Cancelled 12.6 Plt Count Cancelled 255 Seg Neutrophils % Cancelled Not Reportable Lymphocytes % Cancelled Not Reportable Monocytes % Cancelled Not Reportable Eosinophils % Cancelled Not Reportable Basophils % Cancelled Not Reportable Absolute Neutrophils Cancelled Not Reportable Absolute Lymphocytes Cancelled Not Reportable Absolute Monocytes Cancelled Not Reportable Absolute Eosinophils Cancelled Not Reportable Absolute Basophils Cancelled Not Reportable Sodium 132.9 L Potassium 4.4 Chloride 89 L Carbon Dioxide 29 Anion Gap 15 BUN 17 Creatinine 0.47 L Est GFR ( Amer) > 60 Est GFR (Non-Af Amer) > 60 Glucose 153 H Calcium 10.9 H Magnesium 2.0 11/28/18 11/28/18 05:04 05:04 WBC 21.1 H RBC 4.36 Hgb 13.5 Hct 39.3 MCV 90 MCH 31.0 MCHC 34.4 RDW 12.8 Plt Count 212 Seg Neutrophils % Not Reportable Lymphocytes % Not Reportable Monocytes % Not Reportable Eosinophils % Not Reportable Basophils % Not Reportable Absolute Neutrophils Not Reportable Absolute Lymphocytes Not Reportable Absolute Monocytes Not Reportable Absolute Eosinophils Not Reportable Absolute Basophils Not Reportable Sodium 129.1 L Potassium 3.9 Chloride 90 L Carbon Dioxide 29 Anion Gap 10 BUN 18 Creatinine 0.45 L Est GFR ( Amer) > 60 Est GFR (Non-Af Amer) > 60 Glucose 165 H Calcium 9.6 Magnesium 11/26/18 12:56 Clean Catch Midstream Urine Culture - Final Mixed Urogenital Raisa 11/26/18 11/26/18 11/26/18 10:00 12:40 12:40 Creatine Kinase CK-MB (CK-2) 2.30 Troponin I Cancelled 0.020 NT-Pro-B Natriuret Pep Cancelled 3650 H 11/26/18 11/26/18 11/27/18 19:30 19:30 01:24 Creatine Kinase 78 83 CK-MB (CK-2) 2.24 Troponin I 0.013 NT-Pro-B Natriuret Pep 11/27/18 11/27/18 11/27/18 01:24 08:15 08:15 Creatine Kinase 113 CK-MB (CK-2) 2.20 3.33 Troponin I 0.015 0.024 NT-Pro-B Natriuret Pep 11/27/18 08:15 Creatine Kinase CK-MB (CK-2) Troponin I NT-Pro-B Natriuret Pep 5740 H Impressions: Chest X-Ray 11/26/18 09:55 IMPRESSION: STABLE CHRONIC CHANGES. NO ACUTE RADIOGRAPHIC FINDING IN THE CHEST. Assessment & Plan - Diagnosis (1) COPD (chronic obstructive pulmonary disease) Qualifiers: COPD type: COPD with acute exacerbation Qualified Code(s): J44.1 - Chronic obstructive pulmonary disease with (acute) exacerbation Is this a current diagnosis for this admission?: Yes Plan: Will do the as needed nebulizer will add the Advair Diskus 1 puff twice a day (2) Chronic a-fib Is this a current diagnosis for this admission?: Yes Plan: We will consult the Dr. Emery to rule out any underlying CHF because of the lupus (3) Lupus (systemic lupus erythematosus) Qualifiers: Systemic lupus erythematosus organ involvement: unspecified Is this a current diagnosis for this admission?: Yes Plan: Clear all stable (4) Von Willebrand disease Is this a current diagnosis for this admission?: Yes Plan: Patient is currently see the line cleaner currently all stable (5) Hyperlipemia Qualifiers: Hyperlipidemia type: unspecified Qualified Code(s): E78.5 - Hyperlipidemia, unspecified Is this a current diagnosis for this admission?: Yes (6) Hypertension Qualifiers: Hypertension type: essential hypertension Qualified Code(s): I10 - Essential (primary) hypertension Is this a current diagnosis for this admission?: Yes (7) Hyponatremia Is this a current diagnosis for this admission?: Yes Plan: Currently stable fluid restrictions - Time Time Spent with patient: 15-24 minutes Medications reviewed and adjusted accordingly: Yes Anticipated discharge: Home Within: Other - Plan Summary Plan Summary: We will repeat the chest x-ray DC the IV steroid Repeat the blood work in the morning continues the doxycycline Continues to physical therapy
[2018-11-28] MEDS: HYDROXYCHLOROQUINE SULFATE 200 MG TABLET PO SCH (09:32)
[2018-11-28] MEDS: PREDNISONE 10 MG TABLET PO SCH ×2 (09:32→17:14)
[2018-11-28] MEDS: DOXYCYCLINE HYCLATE 100 MG TABLET PO SCH ×2 (09:32→21:16)
[2018-11-28] MEDS: CETIRIZINE 10 MG TABLET PO SCH (09:32)
[2018-11-28] MEDS: AMLODIPINE BESYLATE 2.5 MG TABLET PO SCH (09:32)
[2018-11-28] MEDS: DICYCLOMINE HCL 10 MG CAPSULE PO SCH ×3 (09:33→17:06)
[2018-11-28] MEDS: LOSARTAN POTASSIUM 50 MG TABLET PO SCH ×2 (09:33→17:06)
[2018-11-28] MEDS: FAMOTIDINE 20 MG TABLET PO SCH ×2 (09:33→21:16)
[2018-11-28] MEDS ORDERED: DILTIAZEM HCL INJ 25 MG/5 ML VIAL IV ONE (13:45)
--- NOTE | 2018-11-28 15:55 | RADIOLOGY REPORT (SQ) ---
EXAM DESCRIPTION: CHEST 2 VIEWS COMPLETED DATE/TIME: 11/28/2018 3:36 pm REASON FOR STUDY: copd COMPARISON: 11/26/2018 TECHNIQUE: Frontal and lateral radiographic views of the chest acquired. NUMBER OF VIEWS: Two view. LIMITATIONS: None. FINDINGS: LUNGS AND PLEURA: Slightly progressive interstitial opacities. Haziness in the lungs with ill-defined vessels. Suggestive of mild vascular congestion and developing interstitial edema. Low lung volumes otherwise. MEDIASTINUM AND HILAR STRUCTURES: Uncoiled ectatic aorta. HEART AND VASCULAR STRUCTURES: Cardiomegaly. BONES: Osteopenic. HARDWARE: None in the chest. OTHER: No other significant finding. IMPRESSION: Mild interstitial edema. TECHNICAL DOCUMENTATION: JOB ID: [id number] [employer]- All Rights Reserved Reading location - IP/workstation name: [email or web address]
[2018-11-28] MEDS ORDERED: FUROSEMIDE INJ/PF 20 MG/2 ML SDV IV ONE (16:19)
[2018-11-28] MEDS: DILTIAZEM HCL/D5W 125 MG/125 ML RTUINJ IV PRN (17:07)
--- NOTE | 2018-11-28 23:05 | RADIOLOGY REPORT (SQ) ---
CT HEAD WITHOUT IV CONTRAST HISTORY: Confusion. COMPARISON: 05/04/2018 TECHNIQUE: CT scan of the brain without IV contrast. This exam was performed according to our departmental dose-optimization program, which includes automated exposure control, adjustment of the mA and/or kV according to patient size and/or use of iterative reconstruction technique. FINDINGS: Diffuse involutional changes are present. There are scattered areas of hypoattenuation within the periventricular white matter, which likely represent chronic microvascular ischemia. No evidence of acute infarction, intracranial hemorrhage, extra-axial fluid collection, or midline shift. There are secretions in the left sphenoid sinus. No depressed skull fracture. IMPRESSION: 1. No acute intracranial findings. 2. Chronic microvascular ischemic disease.
[2018-11-29 04:54] LABS: HEMATOCRIT 37.8 % (36.0-47.0); HEMOGLOBIN 13.2 g/dL (12.0-15.5); MEAN CORPUSCULAR HEMOGLOBIN 31.2 pg (27.0-33.4); MEAN CORPUSCULAR VOLUME 89 fl (80-97); PLATELET COUNT 213 10^3/uL (150-450); RED BLOOD COUNT 4.23 10^6/uL (3.72-5.28); RED CELL DISTRIBUTION WIDTH 12.9 % (11.5-14.0); WHITE BLOOD COUNT 16.2 10^3/uL (4.0-10.5)
[2018-11-29 05:11] LABS: ANION GAP 5 (5-19); BLOOD UREA NITROGEN 25 mg/dL (7-20); CARBON DIOXIDE 30 mmol/L (22-30); CHLORIDE 91 mmol/L (98-107); GLUCOSE 126 mg/dL (75-110); POTASSIUM 4.2 mmol/L (3.6-5.0); SODIUM 126.1 mmol/L (137-145)
[2018-11-29 05:15] LABS: ABSOLUTE LYMPHOCYTES# (MANUAL) 0.6 10^3/uL (0.5-4.7); ABSOLUTE NEUTROPHILS# (MANUAL) 14.6 10^3/uL (1.7-8.2); BASOPHILS % (MANUAL) 0 % (0-2); EOSINOPHILS % (MANUAL) 0 % (0-6); HYPOCHROMASIA 1+; LYMPHOCYTES % (MANUAL) 4 % (13-45); MONOCYTES % (MANUAL) 6 % (3-13); PLATELET COMMENT ADEQUATE; POLYCHROMASIA 1+; SEGMENTED NEUTROPHILS % (MAN) 90 % (42-78); TOTAL CELLS COUNTED 100
[2018-11-29] MEDS: PREGABALIN 50 MG CAPSULE PO SCH ×3 (06:08→22:13)
[2018-11-29] MEDS: MECLIZINE HCL 12.5 MG TABLET PO SCH ×3 (06:08→22:14)
[2018-11-29] MEDS: DILTIAZEM HCL/D5W 125 MG/125 ML RTUINJ IV PRN (06:09)
--- NOTE | 2018-11-29 08:32 | PDOC PROGRESS REPORT ---
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 fib with a rapid ventricular response with the put on a Cardizem drip by cardiology Patient is denied any chest pain to than any shortness of the breath Alert awake oriented x3 Reason For Visit: COPD ACUTE EXACERBATION Physical Exam Vital Signs: Temp Pulse Resp BP Pulse Ox 97.4 F 78 20 132/87 H 100 11/28/18 23:34 11/29/18 06:00 11/28/18 23:34 11/29/18 06:00 11/28/18 23:34 Intake & Output 11/28/18 11/29/18 11/30/18 06:59 06:59 06:59 Intake Total 1505 1535 Output Total 500 Balance 1505 1035 Weight 48.6 kg 49 kg General appearance: PRESENT: no acute distress, well-developed, well-nourished Head exam: PRESENT: atraumatic, normocephalic Eye exam: PRESENT: conjunctiva pink, EOMI, PERRLA. ABSENT: scleral icterus Ear exam: PRESENT: normal external ear exam Mouth exam: PRESENT: moist, tongue midline Neck exam: PRESENT: full ROM. ABSENT: carotid bruit, JVD, lymphadenopathy, thyromegaly Respiratory exam: PRESENT: clear to auscultation yasmin Cardiovascular exam: PRESENT: RRR. ABSENT: diastolic murmur, rubs, systolic murmur Vascular exam: PRESENT: normal capillary refill GI/Abdominal exam: PRESENT: normal bowel sounds, soft. ABSENT: distended, guarding, mass, organolmegaly, rebound, tenderness Rectal exam: PRESENT: deferred Extremities exam: ABSENT: pedal edema Musculoskeletal exam: PRESENT: ambulatory Neurological exam: PRESENT: alert, awake, oriented to person, oriented to place, oriented to time, oriented to situation, CN II-XII grossly intact. ABSENT: motor sensory deficit Psychiatric exam: PRESENT: appropriate affect, normal mood. ABSENT: homicidal ideation, suicidal ideation Skin exam: PRESENT: dry, intact, warm. ABSENT: cyanosis, rash Results Laboratory Results: 11/29/18 04:12 11/29/18 04:12 11/29/18 11/29/18 11/29/18 04:12 04:12 04:12 WBC 16.2 H RBC 4.23 Hgb 13.2 Hct 37.8 MCV 89 MCH 31.2 MCHC 35.0 RDW 12.9 Plt Count 213 Seg Neutrophils % Not Reportable Lymphocytes % Not Reportable Monocytes % Not Reportable Eosinophils % Not Reportable Basophils % Not Reportable Absolute Neutrophils Not Reportable Absolute Lymphocytes Not Reportable Absolute Monocytes Not Reportable Absolute Eosinophils Not Reportable Absolute Basophils Not Reportable Sodium 126.1 L Potassium 4.2 Chloride 91 L Carbon Dioxide 30 Anion Gap 5 BUN 25 H Creatinine 0.52 Est GFR ( Amer) > 60 Est GFR (Non-Af Amer) > 60 Glucose 126 H Lactic Acid 1.6 Calcium 9.0 11/26/18 11/26/18 11/26/18 10:00 12:40 12:40 Creatine Kinase CK-MB (CK-2) 2.30 Troponin I Cancelled 0.020 NT-Pro-B Natriuret Pep Cancelled 3650 H 11/26/18 11/26/18 11/27/18 19:30 19:30 01:24 Creatine Kinase 78 83 CK-MB (CK-2) 2.24 Troponin I 0.013 NT-Pro-B Natriuret Pep 11/27/18 11/27/18 11/27/18 01:24 08:15 08:15 Creatine Kinase 113 CK-MB (CK-2) 2.20 3.33 Troponin I 0.015 0.024 NT-Pro-B Natriuret Pep 11/27/18 08:15 Creatine Kinase CK-MB (CK-2) Troponin I NT-Pro-B Natriuret Pep 5740 H Impressions: Chest X-Ray 11/28/18 00:00 IMPRESSION: Mild interstitial edema. Head CT 11/28/18 00:00 IMPRESSION: 1. No acute intracranial findings. 2. Chronic microvascular ischemic disease. Assessment & Plan - Diagnosis (1) COPD (chronic obstructive pulmonary disease) Qualifiers: COPD type: COPD with acute exacerbation Qualified Code(s): J44.1 - Chronic obstructive pulmonary disease with (acute) exacerbation Is this a current diagnosis for this admission?: Yes Plan: Currently getting better (2) Chronic a-fib Is this a current diagnosis for this admission?: Yes Plan: Currently on a Cardizem drip (3) Lupus (systemic lupus erythematosus) Qualifiers: Systemic lupus erythematosus organ involvement: unspecified Is this a current diagnosis for this admission?: Yes Plan: Clear all stable (4) Von Willebrand disease Is this a current diagnosis for this admission?: Yes Plan: Patient is currently see the merchandise presentation manager currently all stable (5) Hyperlipemia Qualifiers: Hyperlipidemia type: unspecified Qualified Code(s): E78.5 - Hyperlipidemia, unspecified Is this a current diagnosis for this admission?: Yes (6) Hypertension Qualifiers: Hypertension type: essential hypertension Qualified Code(s): I10 - Essential (primary) hypertension Is this a current diagnosis for this admission?: Yes (7) Hyponatremia Is this a current diagnosis for this admission?: Yes Plan: Will give a normal saline for 12 hours - Time Time Spent with patient: 15-24 minutes Medications reviewed and adjusted accordingly: Yes Anticipated discharge: Home - Plan Summary Plan Summary: Discussed with the regarding the patient's current condition and my office yesterday Patient otherwise doing fair Follow with the cardiology Fluid restrictions Repeat the Chem-7 in the morning Patient's white count is elevated most likely up from the steroid coming down
[2018-11-29] MEDS ORDERED: NORMAL SALINE 1000 ML 1,000 ML IV PRN (08:45)
[2018-11-29] MEDS: DILTIAZEM HCL 120 MG CAP.SR.24H PO SCH ×2 (11:35→22:12)
[2018-11-29] MEDS: DOXYCYCLINE HYCLATE 100 MG TABLET PO SCH ×2 (11:35→22:13)
[2018-11-29] MEDS: CETIRIZINE 10 MG TABLET PO SCH (11:35)
[2018-11-29] MEDS: PREDNISONE 10 MG TABLET PO SCH ×2 (11:35→18:46)
[2018-11-29] MEDS: LOSARTAN POTASSIUM 50 MG TABLET PO SCH ×2 (11:35→18:46)
[2018-11-29] MEDS: FAMOTIDINE 20 MG TABLET PO SCH ×2 (11:35→22:12)
[2018-11-29] MEDS: DICYCLOMINE HCL 10 MG CAPSULE PO SCH ×3 (11:35→18:46)
[2018-11-29] MEDS: HYDROXYCHLOROQUINE SULFATE 200 MG TABLET PO SCH (11:35)
--- NOTE | 2018-11-29 21:03 | EKG REPORT ---
SEVERITY:- ABNORMAL ECG - ATRIAL FIBRILLATION : Confirmed by: Gricelda Emery MD 29-Nov-2018 21:02:28
[2018-11-30] MEDS: PREGABALIN 50 MG CAPSULE PO SCH ×3 (06:43→21:50)
[2018-11-30] MEDS: MECLIZINE HCL 12.5 MG TABLET PO SCH ×3 (06:43→21:53)
[2018-11-30] MEDS: CETIRIZINE 10 MG TABLET PO SCH (09:03)
[2018-11-30] MEDS: DILTIAZEM HCL 120 MG CAP.SR.24H PO SCH ×2 (09:03→21:50)
[2018-11-30] MEDS: LOSARTAN POTASSIUM 50 MG TABLET PO SCH ×2 (09:03→17:21)
[2018-11-30] MEDS: PREDNISONE 10 MG TABLET PO SCH ×2 (09:03→17:21)
[2018-11-30] MEDS: DOXYCYCLINE HYCLATE 100 MG TABLET PO SCH ×2 (09:03→21:50)
[2018-11-30] MEDS: HYDROXYCHLOROQUINE SULFATE 200 MG TABLET PO SCH (09:03)
[2018-11-30] MEDS: DICYCLOMINE HCL 10 MG CAPSULE PO SCH ×3 (09:03→17:21)
[2018-11-30] MEDS: FAMOTIDINE 20 MG TABLET PO SCH ×2 (09:03→21:50)
--- NOTE | 2018-11-30 18:45 | PDOC PROGRESS REPORT ---
Subjective Progress Note for:: 11/30/18 Subjective:: She is currently off supplemental oxygen with satisfactory saturation. No chest pain or palpitation. No nausea, vomiting, or abdominal pain. Reason For Visit: COPD ACUTE EXACERBATION Physical Exam Vital Signs: Temp Pulse Resp BP Pulse Ox 97.7 F 71 18 136/70 H 93 11/30/18 15:36 11/30/18 15:36 11/30/18 15:36 11/30/18 15:36 11/30/18 15:36 Intake & Output 11/29/18 11/30/18 12/01/18 06:59 06:59 06:59 Intake Total 1535 1475 624 Output Total 500 650 850 Balance 1035 825 -226 Weight 49 kg 50 kg General appearance: PRESENT: no acute distress, well-developed, well-nourished Head exam: PRESENT: atraumatic, normocephalic Eye exam: PRESENT: conjunctiva pink. ABSENT: scleral icterus Ear exam: PRESENT: normal external ear exam Mouth exam: PRESENT: moist Respiratory exam: PRESENT: clear to auscultation yasmin Cardiovascular exam: PRESENT: irregular rhythm, +S1, +S2. ABSENT: diastolic murmur, systolic murmur Vascular exam: ABSENT: pallor GI/Abdominal exam: PRESENT: normal bowel sounds, soft. ABSENT: distended, guarding, mass, organolmegaly, rebound, tenderness Extremities exam: ABSENT: pedal edema Neurological exam: PRESENT: alert, awake, oriented to person, oriented to place, oriented to time, oriented to situation, CN II-XII grossly intact. ABSENT: motor sensory deficit Psychiatric exam: PRESENT: appropriate affect, normal mood. ABSENT: homicidal ideation, suicidal ideation Skin exam: PRESENT: dry, warm Results Laboratory Results: 11/29/18 04:12 11/29/18 04:12 11/26/18 11/26/18 11/26/18 10:00 12:40 12:40 Creatine Kinase CK-MB (CK-2) 2.30 Troponin I Cancelled 0.020 NT-Pro-B Natriuret Pep Cancelled 3650 H 11/26/18 11/26/18 11/27/18 19:30 19:30 01:24 Creatine Kinase 78 83 CK-MB (CK-2) 2.24 Troponin I 0.013 NT-Pro-B Natriuret Pep 11/27/18 11/27/18 11/27/18 01:24 08:15 08:15 Creatine Kinase 113 CK-MB (CK-2) 2.20 3.33 Troponin I 0.015 0.024 NT-Pro-B Natriuret Pep 11/27/18 08:15 Creatine Kinase CK-MB (CK-2) Troponin I NT-Pro-B Natriuret Pep 5740 H Impressions: Chest X-Ray 11/28/18 00:00 IMPRESSION: Mild interstitial edema. Head CT 11/28/18 00:00 IMPRESSION: 1. No acute intracranial findings. 2. Chronic microvascular ischemic disease. Assessment & Plan - Diagnosis (1) Hyponatremia Is this a current diagnosis for this admission?: Yes Plan: Continue IV fluid support. She has hx SIADH. (2) Chronic a-fib Is this a current diagnosis for this admission?: Yes Plan: Due to her Von Willebrand disease, she is not a candidate for anticoagulation. I discussed case with portable track crew chief, Dr. Nichols. (3) Von Willebrand disease Is this a current diagnosis for this admission?: Yes Plan: Continue current supportive management. (4) COPD (chronic obstructive pulmonary disease) Qualifiers: COPD type: COPD with acute exacerbation Qualified Code(s): J44.1 - Chronic obstructive pulmonary disease with (acute) exacerbation Is this a current diagnosis for this admission?: Yes Plan: Continue current medication management. (5) Hyperlipemia Qualifiers: Hyperlipidemia type: unspecified Qualified Code(s): E78.5 - Hyperlipidemia, unspecified Is this a current diagnosis for this admission?: Yes Plan: Continue current medication management. (6) Hypertension Qualifiers: Hypertension type: essential hypertension Qualified Code(s): I10 - Essential (primary) hypertension Is this a current diagnosis for this admission?: Yes Plan: Continue current medication management. (7) Lupus (systemic lupus erythematosus) Qualifiers: Systemic lupus erythematosus organ involvement: unspecified Is this a current diagnosis for this admission?: Yes Plan: Continue current medication management. - Time Time Spent with patient: 25-34 minutes Medications reviewed and adjusted accordingly: Yes Anticipated discharge: Home with Homehealth Within: Other - Inpatient Certification Based on my medical assessment, after consideration of the patient's comorbidities, presenting symptoms, or acuity I expect that the services needed warrant INPATIENT care.: Yes I certify that my determination is in accordance with my understanding of Medicare's requirements for reasonable and necessary INPATIENT services [42 CFR 412.3e].: Yes Medical Necessity: Significant Comorbidiites Make Outpatient Treatment Too Risky, Need Close Monitoring Due to Risk of Patient Decompensation, Need For IV Fluids, Need For Continuous Telemetry Monitoring, Risk of Complication if Not Cared For in Hospital, Risk of Diagnosis Which Will Require Inpatient Eval/Care/Monitoring Post Hospital Care: D/C Casino Floor Supervisor Documentation - Plan Summary Plan Summary: Continue current medication management. Obtain CBC with diff, CMP in AM.
--- NOTE | 2018-11-30 22:49 | Progress Note ---
Provider Note Provider Note: Cardiology PROGRESS NOTE by Dr. Gricelda Emery on 11/30/2018. OBJECTIVE: The patient states that shortness of breath is much better. She has no PND orthopnea. She still has a cough with the light yellowish sputum. There is no hemoptysis. There is no chest pain or discomfort. There is no leg edema. In spite of the patient's sodium being low the patient is not confused. There is no TIA CVA symptoms. There is no leg edema. Patient continues to be in atrial fibrillation controlled ventricular response on oral Cardizem. There is no ventricular arrhythmia seen. PHYSICAL EXAMINATION: The patient appears to be chronically ill but in no acute distress. She is well-groomed Selected Entries 12/29/14 11/30/18 07:58 11:46 Temperature 97.5 F Temperature Axillary Source Pulse Rate 61 81 Respiratory 14 Rate Blood Pressure 133/73 H Blood Pressure 93 Mean BP Location Right Arm BP Position Supine O2 Sat by Pulse 98 Oximetry Oxygen Flow 1.50 Rate Oxygen Delivery Nasal Cannula Method HEAD: Atraumatic normocephalic. EYES: Pupils are equal round regular reactive to light accommodation. Extraocular movements are normal. There is no clinical pallor. There is no scleral icterus. EARS: Tympanic membranes are intact. External auditory canals are clear. NOSE: There is no deviated nasal septum. There is no inflammation of the nasal mucous membrane. MOUTH: Mucous membranes of the mouth are moist tongue is moist. There is no ulcers. There is no bleeding from the gums. THROAT: There is no redness of the exudates. There is no redness of the oropharynx. SKIN: There is no skin rashes or skin lesions. There is no petechia or ecchymosis. NECK: Is supple. There is no JVD. Carotids are equal there is no bruit. There is no lymphadenopathy. There is no goiter. There is no accessory muscle respiration use. Trachea central. LUNGS: There is diminished air entry and prolonged expiration. There is a few scattered rhonchi. There is no rales of CHF. On percussion there is hyperresonance. On palpation there is no chest wall tenderness. HEART: S1-S2 is heard. S1 is of variable intensity. There is no S3 gallop. There is no S4 gallop. Systolic murmur left sternal border and the apex. There is no rub. ABDOMEN: Is soft. There is no hepatosplenomegaly. Bowel sounds are well heard.. Extremities femorals are diminished. There is no femoral bruits. Leg pulses are well felt. There is no pedal edema. There is no DVT encephalitis. There is no cyanosis or clubbing. There is no calf tenderness. MERCHANT SEAMAN: The patient is conscious awake alert oriented x3 with no focal deficit. PSYCHIATRIC: The patient judgment insight are intact her affect is normal. 11/29/18 11/29/18 04:12 04:12 Sodium 126.1 L Potassium 4.2 Chloride 91 L Carbon Dioxide 30 Anion Gap 5 BUN 25 H Creatinine 0.52 Est GFR (Non-Af Amer) > 60 Glucose 126 H Lactic Acid 1.6 Calcium 9.0 IMPRESSION/RECOMMENDATION: 1. Acute exacerbation of COPD: Improving. Still not back to baseline. Recommend continue the same treatment. 2. Chronic atrial fibrillation. At present rate well controlled. Patient not a candidate for chronic anticoagulation due to von Willebrand's disease.. 3. Hyponatremia: Would add some salt in the diet. Recheck the patient's sodium in the a.m. 4. Hypertension: Blood pressure well controlled. 5. Von Willebrand's disease: At present no evidence of any active bleeding. 6. Systemic lupus erythematosus: Appears to be stable. 6. Malnourished status: Would recommend dietary consult to see if dietary regimen can be prescribed for the patient. Medications reviewed. Case discussed with attending physician. Management plans discussed with him. 40 minutes spent on this patient more than 50% of time spent in direct patient care. Medical decision making is of moderate complexity. Patient is a full code. Her is her surrogate healthcare decision maker.
[2018-12-01 04:52] LABS: ABSOLUTE LYMPHOCYTES (AUTO) 0.6 10^3/uL (0.5-4.7); ABSOLUTE MONOCYTES (AUTO) 0.9 10^3/uL (0.1-1.4); ABSOLUTE NEUT (AUTO) 10.5 10^3/uL (1.7-8.2); BASOPHILS % (AUTO) 0.2 % (0-2); HEMATOCRIT 40.4 % (36.0-47.0); LYMPHOCYTES % (AUTO) 5.2 % (13-45); MEAN CORPUSCULAR HEMOGLOBIN 31.3 pg (27.0-33.4); MEAN CORPUSCULAR HGB CONC 34.7 g/dL (32.0-36.0); MEAN CORPUSCULAR VOLUME 90 fl (80-97); MONOCYTES % (AUTO) 7.7 % (3-13); PLATELET COUNT 203 10^3/uL (150-450); RED BLOOD COUNT 4.46 10^6/uL (3.72-5.28); RED CELL DISTRIBUTION WIDTH 12.7 % (11.5-14.0); SEGMENTED NEUTROPHILS % (AUTO) 86.9 % (42-78); TOTAL CELLS COUNTED % (AUTO) 100 %; WHITE BLOOD COUNT 12.1 10^3/uL (4.0-10.5)
[2018-12-01 05:18] LABS: ALANINE AMINOTRANSFERASE 44 U/L (9-52); ALBUMIN 3.3 g/dL (3.5-5.0); ALKALINE PHOSPHATASE 77 U/L (38-126); ASPARTATE AMINO TRANSFERASE 40 U/L (14-36); BILIRUBIN,DIRECT 0.3 mg/dL (0.0-0.4); BILIRUBIN,TOTAL 0.5 mg/dL (0.2-1.3); BLOOD UREA NITROGEN 21 mg/dL (7-20); CALCIUM 9.3 mg/dL (8.4-10.2); CARBON DIOXIDE 32 mmol/L (22-30); CHLORIDE 95 mmol/L (98-107); GLUCOSE 127 mg/dL (75-110); POTASSIUM 4.1 mmol/L (3.6-5.0); SODIUM 130.4 mmol/L (137-145)
[2018-12-01 05:26] LABS: ANION GAP 3 (5-19)
[2018-12-01] MEDS: PREGABALIN 50 MG CAPSULE PO SCH ×3 (05:41→22:12)
[2018-12-01] MEDS: MECLIZINE HCL 12.5 MG TABLET PO SCH ×3 (07:46→22:11)
[2018-12-01] MEDS: LOSARTAN POTASSIUM 50 MG TABLET PO SCH ×2 (09:51→18:00)
[2018-12-01] MEDS: HYDROXYCHLOROQUINE SULFATE 200 MG TABLET PO SCH (09:51)
[2018-12-01] MEDS: PREDNISONE 10 MG TABLET PO SCH ×2 (09:51→18:00)
[2018-12-01] MEDS: DICYCLOMINE HCL 10 MG CAPSULE PO SCH ×3 (09:51→18:00)
[2018-12-01] MEDS: DOXYCYCLINE HYCLATE 100 MG TABLET PO SCH ×2 (09:52→22:11)
[2018-12-01] MEDS: FAMOTIDINE 20 MG TABLET PO SCH ×2 (09:52→22:12)
[2018-12-01] MEDS: DILTIAZEM HCL 120 MG CAP.SR.24H PO SCH (09:52)
[2018-12-01] MEDS: CETIRIZINE 10 MG TABLET PO SCH (09:52)
--- NOTE | 2018-12-01 17:00 | PDOC PROGRESS REPORT ---
Subjective Progress Note for:: 12/01/18 Subjective:: She reported episode of disorientation upon waking up this morning. No chest pain or palpitation. No nausea, vomiting, or abdominal pain. Reason For Visit: COPD ACUTE EXACERBATION Physical Exam Vital Signs: Temp Pulse Resp BP Pulse Ox 98.0 F 89 16 147/99 H 96 12/01/18 12:11 12/01/18 13:51 12/01/18 12:11 12/01/18 12:11 12/01/18 12:11 Intake & Output 11/30/18 12/01/18 12/02/18 06:59 06:59 06:59 Intake Total 1475 624 300 Output Total 650 1325 625 Balance 825 -925 -326 Weight 50 kg 48.6 kg Physical Exam: General appearance: PRESENT: no acute distress, well-developed, well-nourished Head exam: PRESENT: atraumatic, normocephalic Eye exam: PRESENT: conjunctiva pink. ABSENT: pallor, scleral icterus Ear exam: PRESENT: normal external ear exam Mouth exam: PRESENT: moist Respiratory exam: PRESENT: clear to auscultation yasmin Cardiovascular exam: PRESENT: irregular rhythm, +S1, +S2. ABSENT: diastolic mu rmur, systolic murmur GI/Abdominal exam: PRESENT: normal bowel sounds, soft. ABSENT: distended, gua rding, mass, organomegaly, rebound, tenderness Extremities exam: ABSENT: pedal edema Neurological exam: PRESENT: alert, awake, oriented to person, oriented to place, oriented to time, oriented to situation, CN II-XII grossly intact. ABSENT: motor sensory deficit Psychiatric exam: PRESENT: appropriate affect, normal mood. ABSENT: homicidal ideation, suicidal ideation Skin exam: PRESENT: dry, warm Results Laboratory Results: 12/01/18 04:17 12/01/18 04:17 12/01/18 12/01/18 04:17 04:17 WBC 12.1 H RBC 4.46 Hgb 14.0 Hct 40.4 MCV 90 MCH 31.3 MCHC 34.7 RDW 12.7 Plt Count 203 Seg Neutrophils % 86.9 H Lymphocytes % 5.2 L Monocytes % 7.7 Eosinophils % 0.0 Basophils % 0.2 Absolute Neutrophils 10.5 H Absolute Lymphocytes 0.6 Absolute Monocytes 0.9 Absolute Eosinophils 0.0 Absolute Basophils 0.0 Sodium 130.4 L Potassium 4.1 Chloride 95 L Carbon Dioxide 32 H Anion Gap 3 L BUN 21 H Creatinine 0.44 L Est GFR ( Amer) > 60 Est GFR (Non-Af Amer) > 60 Glucose 127 H Calcium 9.3 Total Bilirubin 0.5 AST 40 H ALT 44 Alkaline Phosphatase 77 Total Protein 6.0 L Albumin 3.3 L 11/26/18 10:35 Blood Blood Culture - Final NO GROWTH IN 5 DAYS 11/26/18 10:00 Blood Blood Culture - Final NO GROWTH IN 5 DAYS 11/26/18 11/26/18 11/26/18 10:00 12:40 12:40 Creatine Kinase CK-MB (CK-2) 2.30 Troponin I Cancelled 0.020 NT-Pro-B Natriuret Pep Cancelled 3650 H 11/26/18 11/26/18 11/27/18 19:30 19:30 01:24 Creatine Kinase 78 83 CK-MB (CK-2) 2.24 Troponin I 0.013 NT-Pro-B Natriuret Pep 11/27/18 11/27/18 11/27/18 01:24 08:15 08:15 Creatine Kinase 113 CK-MB (CK-2) 2.20 3.33 Troponin I 0.015 0.024 NT-Pro-B Natriuret Pep 11/27/18 08:15 Creatine Kinase CK-MB (CK-2) Troponin I NT-Pro-B Natriuret Pep 5740 H Impressions: Chest X-Ray 11/28/18 00:00 IMPRESSION: Mild interstitial edema. Head CT 11/28/18 00:00 IMPRESSION: 1. No acute intracranial findings. 2. Chronic microvascular ischemic disease. Assessment & Plan - Diagnosis (1) Hyponatremia Is this a current diagnosis for this admission?: Yes (2) Chronic a-fib Is this a current diagnosis for this admission?: Yes (3) Von Willebrand disease Is this a current diagnosis for this admission?: Yes (4) COPD (chronic obstructive pulmonary disease) Qualifiers: COPD type: COPD with acute exacerbation Qualified Code(s): J44.1 - Chronic obstructive pulmonary disease with (acute) exacerbation Is this a current diagnosis for this admission?: Yes (5) Hyperlipemia Qualifiers: Hyperlipidemia type: unspecified Qualified Code(s): E78.5 - Hyperlipidemia, unspecified Is this a current diagnosis for this admission?: Yes (6) Hypertension Qualifiers: Hypertension type: essential hypertension Qualified Code(s): I10 - Essential (primary) hypertension Is this a current diagnosis for this admission?: Yes (7) Lupus (systemic lupus erythematosus) Qualifiers: Systemic lupus erythematosus organ involvement: unspecified Is this a current diagnosis for this admission?: Yes - Time Time Spent with patient: 25-34 minutes Medications reviewed and adjusted accordingly: Yes Anticipated discharge: Home with Homehealth Within: Other - Inpatient Certification Based on my medical assessment, after consideration of the patient's comorbidities, presenting symptoms, or acuity I expect that the services needed warrant INPATIENT care.: Yes I certify that my determination is in accordance with my understanding of [facility]'s requirements for reasonable and necessary INPATIENT services [42 CFR 412.3e].: Yes Medical Necessity: Significant Comorbidiites Make Outpatient Treatment Too Risky, Need Close Monitoring Due to Risk of Patient Decompensation, Need For IV Fluids, Need For Continuous Telemetry Monitoring, Risk of Complication if Not Cared For in Hospital, Risk of Diagnosis Which Will Require Inpatient Eval/Care/Monitoring - Plan Summary Plan Summary: Continue all current medication management.
--- NOTE | 2018-12-01 21:12 | Progress Note ---
Provider Note Provider Note: CARDIOLOGY PROGRESS NOTE by Dr. Gricelda Emery on 12/01/2018. OBJECTIVE: The patient states her cough is much improved. Although she still has a little cough. She is not producing any sputum. There is no chest pain or discomfort. At present there is no orthopnea or PND. There is no leg edema. The patient continues to be in atrial fibrillation at a controlled ventricular response. At times her blood pressure seems to be a little higher than normal. There is no TIA CVA symptoms. There is no ventricular arrhythmia seen on the monitor. PHYSICAL EXAMINATION: The patient appears to be a frail build, and is appears to be malnourished. She appears to be chronically ill. But at present in no acute distress. Selected Entries 12/01/18 07:38 Temperature 97.4 F Temperature Oral Source Pulse Rate 90 Respiratory 18 Rate Blood Pressure 158/95 H Blood Pressure 116 Mean BP Location Right Arm BP Position Supine O2 Sat by Pulse 95 Oximetry Oxygen Delivery Room Air Method HEAD: Atraumatic normocephalic. EYES: Pupils are equal round regular reactive to light accommodation. Extraocular movements are normal. There is no clinical pallor. There is no scleral icterus. EARS: Tympanic membranes are intact. External auditory canals are clear. NOSE: There is no deviated nasal septum. There is no inflammation of the nasal mucous membrane. MOUTH: Mucous membranes of the mouth are moist tongue is moist. There is no ulcers. There is no bleeding from the gums. THROAT: There is no redness of the exudates. There is no redness of the oropharynx. SKIN: There is no skin rashes or skin lesions. There is no petechia or ecchymosis. NECK: Is supple. There is no JVD. Carotids are equal there is no bruit. There is no lymphadenopathy. There is no goiter. There is no accessory muscle respiration use. Trachea central. LUNGS: There is diminished air entry and prolonged expiration. There is a few scattered rhonchi. There is no rales of CHF. On percussion there is hyperresonance. On palpation there is no chest wall tenderness. HEART: S1-S2 is heard. S1 is of variable intensity. There is no S3 gallop. There is no S4 gallop. Systolic murmur left sternal border and the apex. There is no rub. ABDOMEN: Is soft. There is no hepatosplenomegaly. Bowel sounds are well heard.. Extremities femorals are diminished. There is no femoral bruits. Leg pulses are well felt. There is no pedal edema. There is no DVT encephalitis. There is no cyanosis or clubbing. There is no calf tenderness. 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 PSYCHIATRIC: The patient judgment insight are intact her affect is normal. 12/01/18 12/01/18 04:17 04:17 WBC 12.1 H RBC 4.46 Hgb 14.0 Hct 40.4 MCV 90 MCH 31.3 MCHC 34.7 RDW 12.7 Plt Count 203 Seg Neutrophils % 86.9 H Sodium 130.4 L Potassium 4.1 Chloride 95 L Carbon Dioxide 32 H BUN 21 H Creatinine 0.44 L Est GFR (Non-Af Amer) > 60 Glucose 127 H Calcium 9.3 Total Bilirubin 0.5 Direct Bilirubin 0.3 Neonat Total Bilirubin Not Reportable Neonat Direct Bilirubin Not Reportable Neonat Indirect Bili Not Reportable AST 40 H ALT 44 Alkaline Phosphatase 77 IMPRESSION/RECOMMENDATION: 1. Acute exacerbation of COPD: Improving. Still not back to baseline. Recommend continue the same treatment. 2. Chronic atrial fibrillation. At present rate well controlled, but still not optimally controlled.. Patient not a candidate for chronic anticoagulation due to von Willebrand's disease.. 3. Hyponatremia: Would add some salt in the diet. The patient's sodium is improved, but is still not normal. 4. Hypertension: Blood pressure decreased spurts of blood pressure on occasions. Will increase the patient's Cardizem CD to 180 mg p.o. every 12 ho urs. 5. Von Willebrand's disease: At present no evidence of any active bleeding. 6. Systemic lupus erythematosus: Appears to be stable. 6. Malnourished status: Would recommend dietary consult to see if dietary regimen can be prescribed for the patient. Medications reviewed. Medication dose adjusted. Case discussed with attending physician. Management plans discussed with him. 40 minutes spent on this patient more than 50% of time spent in direct patient care. Medical decision making is of high complexity, in view of the meeting to increase her medications. Patient is a full code. Her is her surrogate healthcare decision maker.
[2018-12-01] MEDS: DILTIAZEM HCL 180 MG CAPSULE.CR PO SCH (22:12)
[2018-12-02] MEDS: MECLIZINE HCL 12.5 MG TABLET PO SCH ×3 (05:29→21:54)
[2018-12-02] MEDS: PREGABALIN 50 MG CAPSULE PO SCH ×3 (05:29→21:54)
--- NOTE | 2018-12-02 08:42 | PDOC PROGRESS REPORT ---
Subjective Progress Note for:: 12/02/18 Subjective:: Patient is currently doing well except is confused at nighttime but very clear during the day times Patient's denied any chest pain to than any shortness of the breath Patient's medications were adjusted by Dr. Monterroso Patients denied any headache no other symptoms Reason For Visit: COPD ACUTE EXACERBATION Physical Exam Vital Signs: Temp Pulse Resp BP Pulse Ox 97.6 F 77 18 152/80 H 97 12/02/18 03:27 12/02/18 07:00 12/02/18 06:00 12/02/18 06:00 12/02/18 06:00 Intake & Output 12/01/18 12/02/18 12/03/18 06:59 06:59 06:59 Intake Total 624 682 Output Total 1325 1600 Balance -701 -918 Weight 48.6 kg 47.8 kg General appearance: PRESENT: no acute distress, well-developed, well-nourished Head exam: PRESENT: atraumatic, normocephalic Eye exam: PRESENT: conjunctiva pink, EOMI, PERRLA. ABSENT: scleral icterus Ear exam: PRESENT: normal external ear exam Mouth exam: PRESENT: moist, tongue midline Neck exam: PRESENT: full ROM. ABSENT: carotid bruit, JVD, lymphadenopathy, thyromegaly Respiratory exam: PRESENT: clear to auscultation yasmin Cardiovascular exam: PRESENT: RRR. ABSENT: diastolic murmur, rubs, systolic murmur Vascular exam: PRESENT: normal capillary refill GI/Abdominal exam: PRESENT: normal bowel sounds, soft. ABSENT: distended, guarding, mass, organolmegaly, rebound, tenderness Rectal exam: PRESENT: deferred Musculoskeletal exam: PRESENT: ambulatory Neurological exam: PRESENT: alert, awake, oriented to person, oriented to place, oriented to time, oriented to situation, CN II-XII grossly intact. ABSENT: motor sensory deficit Psychiatric exam: PRESENT: appropriate affect, normal mood. ABSENT: homicidal ideation, suicidal ideation Skin exam: PRESENT: dry, intact, warm. ABSENT: cyanosis, rash Results Laboratory Results: 12/01/18 04:17 12/01/18 04:17 11/26/18 10:35 Blood Blood Culture - Final NO GROWTH IN 5 DAYS 11/26/18 10:00 Blood Blood Culture - Final NO GROWTH IN 5 DAYS 11/26/18 11/26/18 11/26/18 10:00 12:40 12:40 Creatine Kinase CK-MB (CK-2) 2.30 Troponin I Cancelled 0.020 NT-Pro-B Natriuret Pep Cancelled 3650 H 11/26/18 11/26/18 11/27/18 19:30 19:30 01:24 Creatine Kinase 78 83 CK-MB (CK-2) 2.24 Troponin I 0.013 NT-Pro-B Natriuret Pep 11/27/18 11/27/18 11/27/18 01:24 08:15 08:15 Creatine Kinase 113 CK-MB (CK-2) 2.20 3.33 Troponin I 0.015 0.024 NT-Pro-B Natriuret Pep 11/27/18 08:15 Creatine Kinase CK-MB (CK-2) Troponin I NT-Pro-B Natriuret Pep 5740 H Impressions: Chest X-Ray 11/28/18 00:00 IMPRESSION: Mild interstitial edema. Head CT 11/28/18 00:00 IMPRESSION: 1. No acute intracranial findings. 2. Chronic microvascular ischemic disease. Assessment & Plan - Diagnosis (1) COPD (chronic obstructive pulmonary disease) Qualifiers: COPD type: COPD with acute exacerbation Qualified Code(s): J44.1 - Chronic obstructive pulmonary disease with (acute) exacerbation Is this a current diagnosis for this admission?: Yes Plan: Currently doing better (2) Chronic a-fib Is this a current diagnosis for this admission?: Yes Plan: Continues to [facility] Patient is a not a candidate for anticoagulations (3) Lupus (systemic lupus erythematosus) Qualifiers: Systemic lupus erythematosus organ involvement: unspecified Is this a current diagnosis for this admission?: Yes Plan: Clear all stable (4) Von Willebrand disease Is this a current diagnosis for this admission?: Yes Plan: Patient is currently see the senior web designer currently all stable (5) Hyperlipemia Qualifiers: Hyperlipidemia type: unspecified Qualified Code(s): E78.5 - Hyperlipidemia, unspecified Is this a current diagnosis for this admission?: Yes (6) Hypertension Qualifiers: Hypertension type: essential hypertension Qualified Code(s): I10 - Essential (primary) hypertension Is this a current diagnosis for this admission?: Yes (7) Hyponatremia Is this a current diagnosis for this admission?: Yes Plan: Fluid restrictions We will repeat the Chem-7 today - Time Time Spent with patient: 15-24 minutes Medications reviewed and adjusted accordingly: Yes Anticipated discharge: Home Within: Other - Plan Summary Plan Summary: Patient still very weak we will get the physical therapy evaluations may be consider temporary rehab Continues to current medications
[2018-12-02 10:04] LABS: BLOOD UREA NITROGEN 19 mg/dL (7-20); CARBON DIOXIDE 35 mmol/L (22-30); POTASSIUM 3.7 mmol/L (3.6-5.0)
[2018-12-02 10:45] LABS: ANION GAP 7 (5-19); CALCIUM 9.5 mg/dL (8.4-10.2); CHLORIDE 91 mmol/L (98-107); GLUCOSE 107 mg/dL (75-110); SODIUM 132.8 mmol/L (137-145)
[2018-12-02] MEDS: CETIRIZINE 10 MG TABLET PO SCH (10:47)
[2018-12-02] MEDS: DOXYCYCLINE HYCLATE 100 MG TABLET PO SCH ×2 (10:47→21:54)
[2018-12-02] MEDS: HYDROXYCHLOROQUINE SULFATE 200 MG TABLET PO SCH (10:47)
[2018-12-02] MEDS: LOSARTAN POTASSIUM 50 MG TABLET PO SCH ×2 (10:48→21:54)
[2018-12-02] MEDS: FAMOTIDINE 20 MG TABLET PO SCH ×2 (10:48→21:54)
[2018-12-02] MEDS: DICYCLOMINE HCL 10 MG CAPSULE PO SCH ×3 (10:48→19:18)
[2018-12-02] MEDS: DILTIAZEM HCL 180 MG CAPSULE.CR PO SCH ×2 (10:48→21:54)
--- NOTE | 2018-12-02 11:16 | RADIOLOGY REPORT (SQ) ---
EXAM DESCRIPTION: CHEST 2 VIEWS COMPLETED DATE/TIME: 12/02/2018 10:25 am REASON FOR STUDY: sob COMPARISON: 11/28/2018 NUMBER OF VIEWS: Two view TECHNIQUE: Frontal and lateral radiographic images of the chest acquired. LIMITATIONS: None. FINDINGS: LUNGS AND PLEURA: Stable appearance. MEDIASTINUM AND HILAR STRUCTURES: Stable heart size and mediastinal structures. HEART AND VASCULAR STRUCTURES: Stable appearance. BONES: No acute findings. HARDWARE: None in the chest. OTHER: No other significant finding. IMPRESSION: STABLE APPEARANCE OF THE CHEST. TECHNICAL DOCUMENTATION: JOB ID: [id number] [employer]- All Rights Reserved Reading location - IP/workstation name: [email or web address]
--- NOTE | 2018-12-02 11:43 | PDOC CONSULTATION ---
Consultation Consult Date: 11/27/18 Attending physician:: NIKKI VELOZ Consult reason:: Exacerbation COPD History of Present Illness Admission Date/PCP: 11/26/18 14:02 NIKKI VELOZ MD History of Present Illness: SKY CENTENO is a 78 year old female, lupus and COPD presents emergency room after 3 or 4 days increasing shortness of breath and was found to have SaO2 approximately 80 this improved somewhat with bronchodilators and oxygen however she required BiPAP and subsequently was admitted she denies hemoptysis PPD was negative dates unknown no history chronic lung disease child or adolescent she is being followed by rheumatology for her lupus as well as by cardiology for her A. fib she has a [id number] history but has not smoked in the last 25 years 1 dog no recent travel she denies angina-like chest pain sleeps on 2 pillows no PND no nocturnal cough no edema she is unaware of any snoring or restless sleep has nocturia 1-2 times per night she denies unrestful sleep or daytime somnolence Past Medical History Cardiac Medical History: Reports: Atrial Fibrillation, Hypertension - when sick Pulmonary Medical History: Reports: Chronic Obstructive Pulmonary Disease (COPD) Neurological Medical History: Reports: Ischemic CVA GI Medical History: Reports: Gastroesophageal Reflux Disease Musculoskeltal Medical History: Reports: Arthritis, Fibromyalgia Psychiatric Medical History: Denies: Schizoaffective Disorder Traumatic Medical History: Denies: Traumatic Brain Injury Hematology: Denies: Sickle Cell Disease Past Surgical History Past Surgical History: Reports: Appendectomy, Hysterectomy, Orthopedic Surgery - back Social History Information Source: [facility] Smoking Status: Former Smoker Frequency of Alcohol Use: None Hx Recreational Drug Use: No Hx Prescription Drug Abuse: No Do you have pets?: Yes Have you had any respiratory illnesses as a child?: No Have you been exposed to any sick contacts recently?: No Have you had any recent respiratory illnesses?: No - Advance Directive Resuscitation Status: Full Code Family History Parental Family History Reviewed: No Children Family History Reviewed: No Sibling(s) Family History Reviewed.: No Medication/Allergy Home Medications: Amlodipine Besylate [Norvasc 2.5 mg Tablet] 2.5 mg PO DAILY 11/26/18 Cetirizine HCl [Zyrtec 10 mg Tablet] 10 mg PO DAILY 11/26/18 Denosumab [Prolia 60 mg/ml Syr 1 ml] 60 mg SQ [id number] 11/26/18 Dicyclomine HCl [Bentyl 10 mg Capsule] 10 mg PO TID 11/26/18 Hydroxychloroquine Sulfate [Plaquenil 200 mg Tablet] 400 mg PO DAILY 11/26/18 Losartan Potassium [Cozaar 50 mg Tablet] 50 mg PO BID 11/26/18 Meclizine HCl [Antivert 12.5 mg Tablet] 12.5 mg PO Q8 11/26/18 Meloxicam [Mobic] 7.5 mg PO DAILY 11/26/18 Pregabalin [Lyrica 50 mg Capsule] 50 mg PO Q8 11/26/18 Allergies/Adverse Reactions: amoxicillin trihydrate [From Augmentin] Allergy (Verified 11/26/18 10:19) aspirin [Aspirin] Allergy (Verified 11/26/18 10:19) cephalexin monohydrate [From Keflex] Allergy (Verified 11/26/18 10:19) erythromycin base [Erythromycin Base] Allergy (Verified 11/26/18 10:19) NSAIDS (Non-Steroidal Anti-Inflamma [Nsaids] Allergy (Verified 11/26/18 10:19) Potassium Clavulanate * [From Augmentin] Allergy (Verified 11/26/18 10:19) Sulfa (Sulfonamide Antibiotics) Allergy (Verified 11/26/18 10:19) Review of Systems ROS unobtainable: Due to mental status Physical Exam Vital Signs: Temp Pulse Resp BP Pulse Ox 97.6 F 63 16 158/63 H 94 11/27/18 03:26 11/27/18 08:20 11/27/18 08:20 11/27/18 04:18 11/27/18 08:20 Intake & Output 11/26/18 11/27/18 11/28/18 06:59 06:59 06:59 Intake Total 335 Balance 335 Weight 45.6 kg General appearance: PRESENT: no acute distress, disheveled, thin. ABSENT: cooperative Head exam: PRESENT: atraumatic, normocephalic Eye exam: PRESENT: conjunctiva pale, EOMI. ABSENT: nystagmus, periorbital swelling, scleral icterus Mouth exam: PRESENT: dry mucosa, neck supple, tongue midline Neck exam: ABSENT: carotid bruit, full ROM, JVD, lymphadenopathy, meningismus, tenderness, thyromegaly, tracheal deviation, tracheostomy, other Respiratory exam: PRESENT: decreased breath sounds, prolonged expiratory phas, rales, rhonchi, unlabored, wheezes. ABSENT: retraction, stridor Cardiovascular exam: PRESENT: RRR, +S1, +S2 Pulses: PRESENT: normal radial pulses Extremities exam: ABSENT: calf tenderness, clubbing, joint swelling Musculoskeletal exam: ABSENT: ambulatory, deformity, dislocation Neurological exam: PRESENT: altered, awake Skin exam: PRESENT: dry, warm Results Laboratory Results: 11/27/18 10:15 11/27/18 08:15 11/26/18 11/26/18 11/27/18 12:30 12:56 08:15 WBC Cancelled RBC Cancelled Hgb Cancelled Hct Cancelled MCV Cancelled MCH Cancelled MCHC Cancelled RDW Cancelled Plt Count Cancelled Seg Neutrophils % Cancelled Lymphocytes % Cancelled Monocytes % Cancelled Eosinophils % Cancelled Basophils % Cancelled Absolute Neutrophils Cancelled Absolute Lymphocytes Cancelled Absolute Monocytes Cancelled Absolute Eosinophils Cancelled Absolute Basophils Cancelled Carbonic Acid 1.23 HCO3/H2CO3 Ratio 22:1 ABG pH 7.45 ABG pCO2 40.9 ABG pO2 109.5 H ABG HCO3 27.9 H ABG O2 Saturation 98.2 H ABG Base Excess 3.7 FiO2 2L Sodium Potassium Chloride Carbon Dioxide Anion Gap BUN Creatinine Est GFR ( Amer) Est GFR (Non-Af Amer) Glucose Calcium Magnesium Urine Color LIGHT YELLOW Urine Appearance CLEAR Urine pH 6.0 Ur Specific [place] 1.010 Urine Protein NEGATIVE Urine Glucose (UA) NEGATIVE Urine Ketones NEGATIVE Urine Blood NEGATIVE Urine Nitrite NEGATIVE Ur Leukocyte Esterase NEGATIVE 11/27/18 11/27/18 08:15 10:15 WBC 17.8 H RBC 4.65 Hgb 14.6 Hct 42.2 MCV 91 MCH 31.4 MCHC 34.6 RDW 12.6 Plt Count 255 Seg Neutrophils % Not Reportable Lymphocytes % Not Reportable Monocytes % Not Reportable Eosinophils % Not Reportable Basophils % Not Reportable Absolute Neutrophils Not Reportable Absolute Lymphocytes Not Reportable Absolute Monocytes Not Reportable Absolute Eosinophils Not Reportable Absolute Basophils Not Reportable Carbonic Acid HCO3/H2CO3 Ratio ABG pH ABG pCO2 ABG pO2 ABG HCO3 ABG O2 Saturation ABG Base Excess FiO2 Sodium 132.9 L Potassium 4.4 Chloride 89 L Carbon Dioxide 29 Anion Gap 15 BUN 17 Creatinine 0.47 L Est GFR ( Amer) > 60 Est GFR (Non-Af Amer) > 60 Glucose 153 H Calcium 10.9 H Magnesium 2.0 Urine Color Urine Appearance Urine pH Ur Specific [place] Urine Protein Urine Glucose (UA) Urine Ketones Urine Blood Urine Nitrite Ur Leukocyte Esterase 11/26/18 12:56 Clean Catch Midstream Urine Culture - Final Mixed Urogenital Raisa 11/26/18 11/26/18 11/26/18 10:00 12:40 12:40 Creatine Kinase CK-MB (CK-2) 2.30 Troponin I Cancelled 0.020 NT-Pro-B Natriuret Pep Cancelled 3650 H 11/26/18 11/26/18 11/27/18 19:30 19:30 01:24 Creatine Kinase 78 83 CK-MB (CK-2) 2.24 Troponin I 0.013 NT-Pro-B Natriuret Pep 11/27/18 11/27/18 11/27/18 01:24 08:15 08:15 Creatine Kinase 113 CK-MB (CK-2) 2.20 3.33 Troponin I 0.015 0.024 NT-Pro-B Natriuret Pep 11/27/18 08:15 Creatine Kinase CK-MB (CK-2) Troponin I NT-Pro-B Natriuret Pep 5740 H Impressions: Chest X-Ray 11/26/18 09:55 IMPRESSION: STABLE CHRONIC CHANGES. NO ACUTE RADIOGRAPHIC FINDING IN THE CHEST. Assessment & Plan - Diagnosis (1) Chronic a-fib Is this a current diagnosis for this admission?: Yes Plan: By cardiology ventricular response well controlled (2) COPD (chronic obstructive pulmonary disease) Qualifiers: COPD type: COPD with acute exacerbation Qualified Code(s): J44.1 - Chronic obstructive pulmonary disease with (acute) exacerbation Is this a current diagnosis for this admission?: Yes Plan: Continue current bronchodilator therapy add inhaled corticosteroid at this time (3) Lupus (systemic lupus erythematosus) Qualifiers: Systemic lupus erythematosus organ involvement: unspecified Is this a current diagnosis for this admission?: Yes Plan: Stable followed by rheumatology (4) Von Willebrand disease Is this a current diagnosis for this admission?: Yes Plan: Stable and followed by oncology
--- NOTE | 2018-12-02 22:54 | Progress Note ---
Provider Note Provider Note: CARDIOLOGY PROGRESS NOTEBy Dr. Tony Emery on 12/02/2018. OBJECTIVE: the patient states the shortness of breath is much better. She has no cough. There is no P&G orthopnea. There is no wheezing. There is no chest pain or discomfort. She still in atrial fibrillation control went response. The blood pressure still seems to be slightly under fireside, and is not optimally controlled. I have just increase the Cardizem CD 20 mg. She told us, we'll see if there need to be a second medication added for a blood pressure control. There is no leg edema. There is no TIC B symptoms. PHYSICAL EXAMINATION: the patient appears to be a failed build, she appears to be chronically ill. She is at present no and no acute distress. Selected Entries 12/02/18 07:43 Temperature 97.9 F Temperature Oral Source Pulse Rate 79 Respiratory 16 Rate Blood Pressure 161/90 H Blood Pressure 113 Mean BP Location Right Arm BP Position Sitting O2 Sat by Pulse 96 Oximetry Oxygen Delivery Room Air Method HEAD: Atraumatic normocephalic. EYES: Pupils are equal round regular reactive to light accommodation. Extraocular movements are normal. There is no clinical pallor. There is no scleral icterus. EARS: Tympanic membranes are intact. External auditory canals are clear. NOSE: There is no deviated nasal septum. There is no inflammation of the nasal mucous membrane. MOUTH: Mucous membranes of the mouth are moist tongue is moist. There is no ulcers. There is no bleeding from the gums. THROAT: There is no redness of the exudates. There is no redness of the oropharynx. SKIN: There is no skin rashes or skin lesions. There is no petechia or ecchymosis. NECK: Is supple. There is no JVD. Carotids are equal there is no bruit. There is no lymphadenopathy. There is no goiter. There is no accessory muscle respiration use. Trachea central. LUNGS: There is diminished air entry and prolonged expiration. There is no rhonchi rales or wheezing. There is no rales of CHF. On percussion there is hyperresonance. On palpation there is no chest wall tenderness. HEART: S1-S2 is heard. S1 is of variable intensity. There is no S3 gallop. There is no S4 gallop. Systolic murmur left sternal border and the apex. There is no rub. ABDOMEN: Is soft. There is no hepatosplenomegaly. Bowel sounds are well heard.. Extremities femorals are diminished. There is no femoral bruits. Leg pulses are well felt. There is no pedal edema. There is no DVT encephalitis. There is no cyanosis or clubbing. There is no calf tenderness. PHILOSOPHY INSTRUCTOR: The patient is conscious awake alert oriented x3 with no focal deficit. PSYCHIATRIC: The patient judgment insight are intact her affect is normal. Labs- All tests 24 hr 12/02/18 09:34 Sodium 132.8 L Potassium 3.7 Chloride 91 L Carbon Dioxide 35 H Anion Gap 7 BUN 19 Creatinine 0.61 Est GFR ( Amer) > 60 Est GFR (Non-Af Amer) > 60 Glucose 107 Calcium 9.5 CHEST X-ray: There is linear atelectasis in the right lower lobe. There is no other infiltrates seen. IMPRESSION/RECOMMENDATION: 1. Acute exacerbation of COPD: Improving. Still not back to baseline. Recommend continue the same treatment. 2. Chronic atrial fibrillation. At present rate well controlled, but still not optimally controlled.. Patient not a candidate for chronic anticoagulation due to von Willebrand's disease.. 3. Hyponatremia: Would add some salt in the diet. The patient's sodium is improved, but is still not normal. 4. Hypertension: Blood pressure decreased spurts of blood pressure on occasions. Will increase the patient's Cardizem CD to 180 mg p.o. every 12 hawa rs. 5. Von Willebrand's disease: At present no evidence of any active bleeding. 6. Systemic lupus erythematosus: Appears to be stable. 6. Malnourished status: Would recommend dietary consult to see if dietary regimen can be prescribed for the patient. Medications reviewed.we will recheck the patient's blood pressure over the day, and add another antihypertensive agent if needed. Case discussed with attending physician. Management plans discussed with him. 40 minutes spent on this patient more than 50% of time spent in direct patient care. Medical decision making is of high complexity, in view of the meeting to increase her medications. Patient is a full code. Her is her surrogate healthcare decision maker.
[2018-12-03 05:27] LABS: ABSOLUTE EOSINOPHILS # (AUTO) 0.2 10^3/uL (0.0-0.6); ABSOLUTE LYMPHOCYTES (AUTO) 2.2 10^3/uL (0.5-4.7); ABSOLUTE MONOCYTES (AUTO) 1.3 10^3/uL (0.1-1.4); ABSOLUTE NEUT (AUTO) 5.8 10^3/uL (1.7-8.2); BASOPHILS % (AUTO) 0.2 % (0-2); EOSINOPHILS % (AUTO) 2.6 % (0-6); HEMOGLOBIN 13.9 g/dL (12.0-15.5); LYMPHOCYTES % (AUTO) 22.7 % (13-45); MEAN CORPUSCULAR HEMOGLOBIN 31.3 pg (27.0-33.4); MEAN CORPUSCULAR HGB CONC 34.8 g/dL (32.0-36.0); MEAN CORPUSCULAR VOLUME 90 fl (80-97); MONOCYTES % (AUTO) 13.5 % (3-13); PLATELET COUNT 217 10^3/uL (150-450); RED BLOOD COUNT 4.45 10^6/uL (3.72-5.28); TOTAL CELLS COUNTED % (AUTO) 100 %; WHITE BLOOD COUNT 9.5 10^3/uL (4.0-10.5)
[2018-12-03] MEDS: MECLIZINE HCL 12.5 MG TABLET PO SCH ×2 (05:28→14:25)
[2018-12-03] MEDS: PREGABALIN 50 MG CAPSULE PO SCH ×2 (05:28→14:25)
[2018-12-03] MEDS: FAMOTIDINE 20 MG TABLET PO SCH (10:22)
[2018-12-03] MEDS: DICYCLOMINE HCL 10 MG CAPSULE PO SCH ×2 (10:22→14:25)
[2018-12-03] MEDS: CETIRIZINE 10 MG TABLET PO SCH (10:23)
[2018-12-03] MEDS: DOXYCYCLINE HYCLATE 100 MG TABLET PO SCH (10:23)
[2018-12-03] MEDS: HYDROXYCHLOROQUINE SULFATE 200 MG TABLET PO SCH (10:23)
[2018-12-03] MEDS: DILTIAZEM HCL 180 MG CAPSULE.CR PO SCH (10:23)
[2018-12-03] MEDS: LOSARTAN POTASSIUM 50 MG TABLET PO SCH (10:23)
--- NOTE | 2018-12-03 11:18 | PDOC TRANSFER SUMMARY ---
General - Admit/Disc Date/PCP Admission Date/Primary Care Provider: 11/26/18 14:02 NIKKI VELOZ MD Discharge Date: 12/03/18 - Discharge Diagnosis (1) COPD (chronic obstructive pulmonary disease) Is this a current diagnosis for this admission?: Yes Summary: Currently all improving Use the as needed nebulizer Uses Spiriva once a day (2) Chronic a-fib Is this a current diagnosis for this admission?: Yes Summary: Continues Cardizem 180 twice a day Patient is unable to take in a anticoagulations due to the von Willebrand's disease (3) Lupus (systemic lupus erythematosus) Is this a current diagnosis for this admission?: Yes Summary: Is currently see Dr. Yoo (4) Von Willebrand disease Is this a current diagnosis for this admission?: Yes Summary: Currently all stable patients see her Dr. Webber (5) Hyperlipemia Is this a current diagnosis for this admission?: Yes Summary: Clear all stable (6) Hypertension Is this a current diagnosis for this admission?: Yes Summary: Continues to current medications (7) Hyponatremia Is this a current diagnosis for this admission?: Yes Summary: SIADH Fluid restrictions 1500 cc/day - Additional Information Resuscitation Status: Full Code Discharge Diet: Cardiac Discharge Activity: Activity As Tolerated Prescriptions: Diltiazem HCl [Cardizem Cd 180 mg Capsule] 180 mg PO Q12 #60 capsule.cr Doxycycline Hyclate [Vibramycin 100 mg Tablet] 100 mg PO Q12 #10 tablet Famotidine [Pepcid 20 mg Tablet] 20 mg PO Q12 #60 tablet Levalbuterol HCl [Xopenex Neb 1.25 mg/3 ml Ampul] 1.25 mg NEB RTQ6 PRN #120 vial.neb PRN Reason: Tiotropium [place] [Spiriva Respimat] 4 gm IH DAILY #1 mist.inhal Home Medications: Cetirizine HCl [Zyrtec 10 mg Tablet] 10 mg PO DAILY 11/26/18 Denosumab [Prolia 60 mg/ml Syr 1 ml] 60 mg SQ [id number] 11/26/18 Dicyclomine HCl [Bentyl 10 mg Capsule] 10 mg PO TID 11/26/18 Hydroxychloroquine Sulfate [Plaquenil 200 mg Tablet] 400 mg PO DAILY 11/26/18 Losartan Potassium [Cozaar 50 mg Tablet] 50 mg PO BID 11/26/18 Meclizine HCl [Antivert 12.5 mg Tablet] 12.5 mg PO Q8 11/26/18 Meloxicam [Mobic] 7.5 mg PO DAILY 11/26/18 Pregabalin [Lyrica 50 mg Capsule] 50 mg PO Q8 11/26/18 Diltiazem HCl [Cardizem Cd 180 mg Capsule] 180 mg PO Q12 #60 capsule.cr 12/03/18 Doxycycline Hyclate [Vibramycin 100 mg Tablet] 100 mg PO Q12 #10 tablet 12/03/18 Famotidine [Pepcid 20 mg Tablet] 20 mg PO Q12 #60 tablet 12/03/18 Levalbuterol HCl [Xopenex Neb 1.25 mg/3 ml Ampul] 1.25 mg NEB RTQ6 PRN #120 vial.neb 12/03/18 Tiotropium [place] [Spiriva Respimat] 4 gm IH DAILY #1 mist.inhal 12/03/18 History of Present Illness Admission Date/PCP: 11/26/18 14:02 NIKKI VELOZ MD History of Present Illness: SKY CENTENO is a 78 year old female This is a 78-year-old female with a history of the COPD history of the lupus history of the chronic A. fib history of the von Willebrand's disease osteoarthritis and multiple other issues came to the emergency department with the complaints with difficulty in breathing for last 2 weeks and in the emergency department patient have expiratory wheezing and patient O2 sat is 80% put on a BiPAP and patient is given nebulizer treatment and also Solu-Medrol Patients feel better after the treatments Patients denied any chest pain Patient's chest x-ray is all stable Patient was recently diagnosed with the allergies sinus last month was giving the antibiotic amoxicillin and felt better but this is all that happened again for the last couple of weeks Patient usually see a Dr. Easton mobile security architect for the systemic lupus and c urrently doing well Patient seen the cardiology for the A. fib and a not a candidate for any anticoa gulations Patient see oncology Dr. Alves for the von Willebrand's disease At this point patient admitting for the COPD acute exacerbations Hospital Course Hospital Course: This is a 78-year-old female presenting the emergency department with the COPD acute exacerbation due to the ongoing chronic smoking Patient start with the IV Solu-Medrol and nebulizer treatments Patient also start on doxycycline Patient also have a atrial fibrillation's with a rapid ventricular response put on a Cardizem drips seen by the cardiology Dr. Emery Patient switched to the p.o. Cardizem Patient's amlodipine was DC Patient unable to take in a anticoagulations due to the von Willebrand's disease Patient is otherwise feeling much better Patient was some confusion's which a CT of the head was negative Patient sodium is 132 which is stable patient is a chronic hyponatremia due to SIADH Discussed with the patient and the patient has ongoing weakness need a physical therapy and inpatient rehab Patient at this point may be a sign of some early dementia but most likely age- related Patients need a fall precautions Repeat the Chem-7 in 1 week Physical Exam Vital Signs: Temp Pulse Resp BP Pulse Ox 97.9 F 70 16 139/79 H 97 12/03/18 07:51 12/03/18 07:51 12/03/18 07:51 12/03/18 07:51 12/03/18 07:51 Intake & Output 12/02/18 12/03/18 12/04/18 06:59 06:59 06:59 Intake Total 682 649 Output Total 1600 200 Balance -918 449 Weight 47.8 kg 47.8 kg General appearance: PRESENT: no acute distress, well-developed, well-nourished Head exam: PRESENT: atraumatic, normocephalic Eye exam: PRESENT: conjunctiva pink, EOMI, PERRLA. ABSENT: scleral icterus Ear exam: PRESENT: normal external ear exam Mouth exam: PRESENT: moist, tongue midline Neck exam: ABSENT: carotid bruit, JVD, lymphadenopathy, thyromegaly Respiratory exam: PRESENT: clear to auscultation yasmin. ABSENT: rales, rhonchi, wheezes Cardiovascular exam: PRESENT: RRR. ABSENT: diastolic murmur, rubs, systolic murmur Pulses: PRESENT: normal dorsalis pedis pul Vascular exam: PRESENT: normal capillary refill GI/Abdominal exam: PRESENT: normal bowel sounds, soft. ABSENT: distended, guarding, mass, organolmegaly, rebound, tenderness Rectal exam: PRESENT: deferred Extremities exam: PRESENT: full ROM. ABSENT: calf tenderness, clubbing, pedal edema Neurological exam: PRESENT: alert, awake, oriented to person, oriented to place, oriented to time, oriented to situation, CN II-XII grossly intact. ABSENT: motor sensory deficit Psychiatric exam: PRESENT: appropriate affect, normal mood. ABSENT: homicidal ideation, suicidal ideation Skin exam: PRESENT: dry, intact, warm. ABSENT: cyanosis, rash Results Laboratory Results: 12/03/18 04:46 12/02/18 09:34 12/03/18 04:46 WBC 9.5 RBC 4.45 Hgb 13.9 Hct 40.0 MCV 90 MCH 31.3 MCHC 34.8 RDW 13.0 Plt Count 217 Seg Neutrophils % 61.0 Lymphocytes % 22.7 Monocytes % 13.5 H Eosinophils % 2.6 Basophils % 0.2 Absolute Neutrophils 5.8 Absolute Lymphocytes 2.2 Absolute Monocytes 1.3 Absolute Eosinophils 0.2 Absolute Basophils 0.0 11/26/18 11/26/18 11/26/18 10:00 12:40 12:40 Creatine Kinase CK-MB (CK-2) 2.30 Troponin I Cancelled 0.020 NT-Pro-B Natriuret Pep Cancelled 3650 H 11/26/18 11/26/18 11/27/18 19:30 19:30 01:24 Creatine Kinase 78 83 CK-MB (CK-2) 2.24 Troponin I 0.013 NT-Pro-B Natriuret Pep 11/27/18 11/27/18 11/27/18 01:24 08:15 08:15 Creatine Kinase 113 CK-MB (CK-2) 2.20 3.33 Troponin I 0.015 0.024 NT-Pro-B Natriuret Pep 11/27/18 08:15 Creatine Kinase CK-MB (CK-2) Troponin I NT-Pro-B Natriuret Pep 5740 H Impressions: Head CT 11/28/18 00:00 IMPRESSION: 1. No acute intracranial findings. 2. Chronic microvascular ischemic disease. Chest X-Ray 12/02/18 00:00 IMPRESSION: STABLE APPEARANCE OF THE CHEST. Transfer Plan - Time Spent with Patient Time spent with patient: Greater than 30 Minutes Qualifiers - * PATIENT BEING DISCHARGED WITH ANY OF THE FOLLOWING DIAGNOSIS: No VTE patient discharged on overlapping Therapy?: Yes Plan Time Spent: Greater than 30 Minutes - Rehab facility Repeat the Chem-7 in 1 week Physical therapy daily
[2018-12-03 13:50] VITALS: BP 152/80
== END 2018-12-03 18:13 | DRG 191 ==
LOC: ER 09:41 → EH 14:02 → 3W 18:05
PROVIDERS: ADMIT Family Medicine; ATTEND Family Medicine
PROC: 5A09457 Assistance with Respiratory Ventilation, 24-96 Consecutive Hours, Continuous Positive Airway Pressure (ICD-10-PCS; principal; 2018-11-26)
DX: J44.1 Chronic obstructive pulmonary disease with (acute) exacerbation (principal); D68.0 Von Willebrand disease; E22.2 Syndrome of inappropriate secretion of antidiuretic hormone; E46 Unspecified protein-calorie malnutrition; M32.9 Systemic lupus erythematosus, unspecified; I48.2 Chronic atrial fibrillation; E78.5 Hyperlipidemia, unspecified; K21.9 Gastro-esophageal reflux disease without esophagitis; M19.90 Unspecified osteoarthritis, unspecified site; Z86.73 Personal history of transient ischemic attack (TIA), and cerebral infarction without residual deficits; M79.7 Fibromyalgia; F17.200 Nicotine dependence, unspecified, uncomplicated; Z90.49 Acquired absence of other specified parts of digestive tract; Z90.710 Acquired absence of both cervix and uterus; Z88.0 Allergy status to penicillin; Z88.6 Allergy status to analgesic agent; Z88.1 Allergy status to other antibiotic agents; Z88.2 Allergy status to sulfonamides
CPT/HCPCS: 36415; 70450; 71045; 71046; 80048; 80053; 81001; 82550; 82553; 82803; 83605; 83735; 83880; 84484; 85025; 85610; 87040; 87086; 93005; 93010; 94660; J1940; J2920; J2930; J3105; J3475; J3490; J7030; J7512; J7620

== ENCOUNTER → 2019-01-01 | Outpatient (CLI) | payer MEDICARE, MEDICAID ==
--- NOTE | 2019-01-01 17:47 | RADIOLOGY REPORT (SQ) ---
EXAM DESCRIPTION: VENOUS UNILATERAL LOWER COMPLETED DATE/TIME: 01/01/2019 5:37 pm REASON FOR STUDY: EDEMA RIGHT LEG R60.0 LOCALIZED EDEMA COMPARISON: None. TECHNIQUE: Dynamic and static metz scale and color images acquired of the right leg venous system. S elected spectral images acquired with additional compression and augmentation maneuvers. The contrala teral common femoral vein and saphenofemoral junction were also imaged. Images stored on PACS. LIMITATIONS: None. FINDINGS: COMMON FEMORAL: Normal phasicity, compression and augmentation. No visualized echogenic ma terial on metz scale. No defects on color images. FEMORAL: Normal compression and augmentation. No visualized echogenic material on metz scale. No defe cts on color images. POPLITEAL: Normal compression, augmentation. No visualized echogenic material on metz scale. No defec ts on color images. CALF VESSELS: Normal compression, augmentation. No visualized echogenic material on metz scale. No de fects on color images. GSV and SSV: Normal compression, augmentation. No visualized echogenic material on metz scale. No def ects on color images. ANY DEEP VENOUS INSUFFICIENCY: Not evaluated. ANY EVIDENCE OF POPLITEAL CYST: No. OTHER: No other significant finding. CONTRALATERAL COMMON FEMORAL VEIN AND SAPHENOFEMORAL JUNCTION: Normal phasicity, compression and augmentation. No visualized echogenic material on metz scale. No de fects on color images. IMPRESSION: NO EVIDENCE DVT OR SVT IN THE RIGHT LEG. TECHNICAL DOCUMENTATION: JOB ID: [id number] [employer]- All Rights Reserved Reading location - IP/workstation name: [email or web address]
== END ==
LOC: SP 15:37
PROVIDERS: ATTEND Family Medicine
DX: R60.0 Localized edema (principal)
CPT/HCPCS: 93971

== ENCOUNTER 2019-08-24 18:06 | Emergency (ER) | payer MEDICARE, MEDICAID ==
[2019-08-24 18:20] VITALS: BP 152/90
[2019-08-24] MEDS ORDERED: IPRATROPIUM/ALBUTEROL 0.5-2.5 MG/3 ML AMPUL NEB ONE (18:57)
--- NOTE | 2019-08-24 18:59 | ER Document Report ---
ED Medical Screen (RME) - General Chief Complaint: Chest Congestion Stated Complaint: CHEST CONGESTION/COUGHING/WHEEZING Time Seen by Provider: 08/24/19 18:51 Primary Care Provider: NIKKI VELOZ MD [Primary Care Provider] - Follow up as needed Notes: Patient presents complaining of cough and congestion for the past 3 days. Patient does report nausea and dry heaving this afternoon. Patient denies any chest pain or abdominal pain. Patient denies any fever. Patient does have a history of COPD, hypertension and lupus. I have greeted and performed a rapid initial assessment of this patient. A comprehensive ED assessment and evaluation of the patient, analysis of test results and completion of the medical decision making process will be conducted by additional ED providers. TRAVEL OUTSIDE OF THE [place] IN LAST 30 DAYS: No - Related Data Allergies/Adverse Reactions: amoxicillin trihydrate [From Augmentin] Allergy (Verified 08/24/19 18:52) aspirin [Aspirin] Allergy (Verified 08/24/19 18:52) cephalexin monohydrate [From Keflex] Allergy (Verified 08/24/19 18:52) erythromycin base [Erythromycin Base] Allergy (Verified 08/24/19 18:52) NSAIDS (Non-Steroidal Anti-Inflamma [Nsaids] Allergy (Verified 08/24/19 18:52) Potassium Clavulanate * [From Augmentin] Allergy (Verified 08/24/19 18:52) Sulfa (Sulfonamide Antibiotics) Allergy (Verified 08/24/19 18:52) Home Medications: doesnt have list Past Medical History - Social History Chew tobacco use (# tins/day): No Frequency of alcohol use: None Drug Abuse: None - Past Medical History Cardiac Medical History: Reports: Hx Atrial Fibrillation, Hx Hypertension - when sick Pulmonary Medical History: Reports: Hx COPD Renal/ Medical History: Denies: Hx Peritoneal Dialysis GI Medical History: Reports: Hx Gastroesophageal Reflux Disease, Hx Irritable Bowel, Hx Ulcer Musculoskeltal Medical History: Reports Hx Arthritis, Reports Hx Fibromyalgia Psychiatric Medical History: Denies: Hx Schizoaffective Disorder Traumatic Medical History: Denies: Hx Traumatic Brain Injury Past Surgical History: Reports: Hx Appendectomy, Hx Hysterectomy, Hx Orthopedic Surgery - back - Immunizations Hx Diphtheria, Pertussis, Tetanus Vaccination: No Physical Exam - Vital signs Vitals: Temp Pulse Resp BP Pulse Ox 97.6 F 113 H 18 152/90 H 95 08/24/19 18:18 08/24/19 18:18 08/24/19 18:18 08/24/19 18:18 08/24/19 18:18 - Respiratory Breath sounds: Nonproductive cough, Wheezing - Cardiovascular Rhythm: Irregularly irregular Heart sounds: S1 appreciated, S2 appreciated Course - Vital Signs Vital signs: Temp Pulse Resp BP Pulse Ox 97.6 F 113 H 18 152/90 H 95 08/24/19 18:52 08/24/19 18:18 08/24/19 18:52 08/24/19 18:18 08/24/19 18:52 Doctor's Discharge - Discharge Referrals: NIKKI VELOZ MD [Primary Care Provider] - Follow up as needed
[2019-08-24 19:52] LABS: ABSOLUTE BASOPHILS # (AUTO) 0.1 10^3/uL (0.0-0.2); ABSOLUTE LYMPHOCYTES (AUTO) 0.8 10^3/uL (0.5-4.7); ABSOLUTE MONOCYTES (AUTO) 0.4 10^3/uL (0.1-1.4); BASOPHILS % (AUTO) 1.2 % (0-2); EOSINOPHILS % (AUTO) 0.6 % (0-6); HEMATOCRIT 43.9 % (36.0-47.0); HEMOGLOBIN 15.2 g/dL (12.0-15.5); LYMPHOCYTES % (AUTO) 12.2 % (13-45); MEAN CORPUSCULAR HEMOGLOBIN 31.4 pg (27.0-33.4); MEAN CORPUSCULAR HGB CONC 34.6 g/dL (32.0-36.0); MEAN CORPUSCULAR VOLUME 91 fl (80-97); PLATELET COUNT 215 10^3/uL (150-450); RED BLOOD COUNT 4.83 10^6/uL (3.72-5.28); RED CELL DISTRIBUTION WIDTH 13.7 % (11.5-14.0); TOTAL CELLS COUNTED % (AUTO) 100 %; WHITE BLOOD COUNT 6.4 10^3/uL (4.0-10.5)
--- NOTE | 2019-08-24 20:06 | EKG REPORT ---
SEVERITY:- ABNORMAL ECG - ATRIAL FIBRILLATION, V-RATE 64-118 LOW VOLTAGE IN FRONTAL LEADS : Confirmed by: Ashia Doshi 24-Aug-2019 20:05:58
[2019-08-24 20:09] LABS: ALKALINE PHOSPHATASE 80 U/L (38-126); ANION GAP 6 (5-19); ASPARTATE AMINO TRANSFERASE 23 U/L (14-36); BILIRUBIN,DIRECT 0.2 mg/dL (0.0-0.4); BILIRUBIN,TOTAL 0.4 mg/dL (0.2-1.3); BLOOD UREA NITROGEN 16 mg/dL (7-20); CALCIUM 9.3 mg/dL (8.4-10.2); CARBON DIOXIDE 33 mmol/L (22-30); CHLORIDE 90 mmol/L (98-107); GLUCOSE 116 mg/dL (75-110); POTASSIUM 4.2 mmol/L (3.6-5.0); TOTAL PROTEIN 6.7 g/dL (6.3-8.2)
--- NOTE | 2019-08-24 20:33 | RADIOLOGY REPORT (SQ) ---
EXAM DESCRIPTION: XR CHEST 1 VIEW COMPLETED DATE/TME: 08/24/2019 18:58 CLINICAL HISTORY: 78 years, Female, cough COMPARISON: Prior study from 06/16/2019 NUMBER OF VIEWS: One TECHNIQUE: Single frontal view of the chest was obtained LIMITATIONS: None. FINDINGS: Cardiac and mediastinal contours are stable. There is S-shaped scoliotic curvature of the thoracic spine, similar to the prior. Lung volumes are low. No focal consolidation or pneumothorax is evident. There is blunting of the right costophrenic sulcus which appears unchanged from the previous exam. This could indicate pleural thickening or a tiny pleural effusion. IMPRESSION: Stable appearance of blunting of the right costophrenic sulcus which could indicate pleural thickening or tiny pleural effusion. Unchanged S-shaped scoliotic curvature of the thoracic spine. copyright 2010 [employer]- All Rights Reserved
[2019-08-24] MEDS ORDERED: DOXYCYCLINE HYCLATE 100 MG TABLET PO ONE (20:50)
[2019-08-24] MEDS ORDERED: PREDNISONE 20 MG TABLET PO ONE (20:50)
[2019-08-24] MEDS ORDERED: NORMAL SALINE 250 ML IV ONE (20:51)
--- NOTE | 2019-08-24 20:52 | ER Document Report ---
ED General - General Chief Complaint: Chest Congestion Stated Complaint: CHEST CONGESTION/COUGHING/WHEEZING Time Seen by Provider: 08/24/19 18:51 Primary Care Provider: NIKKI VELOZ MD [Primary Care Provider] - Follow up as needed Notes: Patient is a 78-year-old female that comes emergency department for chief compl aint of cough, congestion, and 2 episodes where she coughed until she threw up this morning. She denies vomiting otherwise, she denies any chest pain, abdominal pain, flank pain, or fever. She denies shortness of breath or difficulty breathing. She states last night she was wheezing a lot. She does have a history of COPD, lupus, she is on 10 mg of prednisone daily, hydroxychloroquine, and inhalers but she is not on oxygen at home. She also states she is treated for hypertension and rate control with atrial fibrillation, she states she forgot to take this this morning however. She is not on anticoagulation because she has a history of von Willebrand's disease. TRAVEL OUTSIDE OF THE [place] IN LAST 30 DAYS: No - Related Data Allergies/Adverse Reactions: amoxicillin trihydrate [From Augmentin] Allergy (Verified 08/24/19 18:52) aspirin [Aspirin] Allergy (Verified 08/24/19 18:52) cephalexin monohydrate [From Keflex] Allergy (Verified 08/24/19 18:52) erythromycin base [Erythromycin Base] Allergy (Verified 08/24/19 18:52) NSAIDS (Non-Steroidal Anti-Inflamma [Nsaids] Allergy (Verified 08/24/19 18:52) Potassium Clavulanate * [From Augmentin] Allergy (Verified 08/24/19 18:52) Sulfa (Sulfonamide Antibiotics) Allergy (Verified 08/24/19 18:52) Home Medications: doesnt have list Past Medical History - General Information source: Patient - Social History Smoking Status: Never Smoker Chew tobacco use (# tins/day): No Frequency of alcohol use: None Drug Abuse: None Lives with: Family Family History: Reviewed & Not Pertinent Patient has suicidal ideation: No Patient has homicidal ideation: No - Past Medical History Cardiac Medical History: Reports: Hx Atrial Fibrillation, Hx Hypertension - when sick Pulmonary Medical History: Reports: Hx COPD Renal/ Medical History: Denies: Hx Peritoneal Dialysis GI Medical History: Reports: Hx Gastroesophageal Reflux Disease, Hx Irritable Bowel, Hx Ulcer Musculoskeletal Medical History: Reports Hx Arthritis, Reports Hx Fibromyalgia Psychiatric Medical History: Denies: Hx Schizoaffective Disorder Traumatic Medical History: Denies: Hx Traumatic Brain Injury Past Surgical History: Reports: Hx Appendectomy, Hx Hysterectomy, Hx Orthopedic Surgery - back - Immunizations Hx Diphtheria, Pertussis, Tetanus Vaccination: No Review of Systems - Review of Systems Constitutional: See HPI EENT: See HPI Cardiovascular: No symptoms reported Respiratory: See HPI Gastrointestinal: No symptoms reported Genitourinary: No symptoms reported Female Genitourinary: No symptoms reported Musculoskeletal: No symptoms reported Skin: No symptoms reported Hematologic/Lymphatic: No symptoms reported Neurological/Psychological: No symptoms reported Physical Exam - Vital signs Vitals: Temp Pulse Resp BP Pulse Ox 97.6 F 113 H 18 152/90 H 95 08/24/19 18:18 08/24/19 18:18 08/24/19 18:18 08/24/19 18:18 08/24/19 18:18 - Notes Notes: GENERAL: Alert, interacts well. No acute distress. HEAD: Normocephalic, atraumatic. EYES: Pupils equal, round, and reactive to light. Extraocular movements intact. ENT: Oral mucosa moist, tongue midline. Oropharynx unremarkable. Airway patent. Mild nasal congestion. NECK: Full range of motion. Supple. Trachea midline. LUNGS: Congested coughing episodes, no tachypnea, no labored breathing, speaks in full sentences. A few scattered rhonchi but no overt rales or wheezing noted. HEART: Irregularly irregular, not tachycardic. No murmur. ABDOMEN: Soft, non-tender. Non-distended. EXTREMITIES: Moves all 4 extremities spontaneously. No edema, normal radial and dorsalis pedis pulses bilaterally. No cyanosis. BACK: no cervical, thoracic, lumbar midline tenderness. No saddle anesthesia, normal distal neurovascular exam. Moves all extremities in full range of motion. NEUROLOGICAL: Alert and oriented x3. Normal speech. Cranial nerves II through XII grossly intact. PSYCH: Normal affect, normal mood. SKIN: Warm, dry, normal turgor. No rashes or lesions noted. Course - Re-evaluation Re-evalutation: Patient noted to be on the monitor in atrial fibrillation with rate controlled. She missed her medication for this this morning, she has a history of this. She denies chest pain or shortness of breath but she does report frequent congested coughing episode. She does have frequent congested coughing on my evaluation, she does have some scattered rhonchi as well. Chest x-ray without significant change from prior with no acute consolidations or pulmonary vascular congestion. BNP was checked in triage and is greater than 1000 but this is significantly lower than previously this year. CBC nonspecific, chemistry unremarkable except for hyponatremia which is also not new for the patient. Reportedly patient drinks too much fluid and this is unknown problem. Patient does not have neurological deficits, she is acting per her baseline, she was given a very sm all amount of fluid here. Discussed with patient. She is on Plaquenil, has a history of COPD, has productive cough with some scattered rhonchi, however she is not hypoxic, has no shortness of breath, is able to ambulate without difficulty, has no fever, no leukocytosis, and she is talkative and quite well-appearing on exam. Patient stating she is ready to go home. She will be placed on short-term prednisone because of her reported wheezing along with her COPD and cough, she will be placed on doxycycline coverage, she will follow-up close with primary care and she will come back if she worsens in any way. Patient and at bedside state appreciation and agreement. Stable at time of discharge. - Vital Signs Vital signs: Temp Pulse Resp BP Pulse Ox 97.6 F 113 H 26 H 152/90 H 96 08/24/19 18:52 08/24/19 18:18 08/24/19 21:00 08/24/19 18:18 08/24/19 21:00 - Laboratory Result Diagrams: 08/24/19 19:37 08/24/19 19:37 Laboratory results interpreted by me: 08/24/19 08/24/19 08/24/19 19:37 19:37 19:37 Lymph % (Auto) 12.2 L Seg Neutrophils % 79.0 H Sodium 129.0 L Chloride 90 L Carbon Dioxide 33 H Creatinine 0.48 L Glucose 116 H NT-Pro-B Natriuret Pep 1220 H Discharge - Discharge Clinical Impression: Productive cough, Sinus congestion Condition: Stable Disposition: HOME, SELF-CARE Additional Instructions: Your evaluation is most consistent with an upper respiratory infection, probably bronchitis. However because of your worsening productive cough we are treating you to prevent pneumonia. We are increasing your prednisone for the next 4 days, take as prescribed and then resume normal dose. You were also treated for low sodium tonight. Remember to take your daily medications for blood pressure and rate control. Follow close with your primary care provider. Come back if you are worse including fever, difficulty breathing, chest pain, abdominal pain, uncontrolled vomiting, confusion, or any other concerning or worsening symptoms. Prescriptions: Prednisone [Deltasone 20 mg Tablet] 2 tab PO DAILY 4 Days #8 tablet Doxycycline Hyclate 100 mg PO BID #14 capsule Referrals: NIKKI VELOZ MD [Primary Care Provider] - Follow up as needed
== END 2019-08-24 21:40 | disposition home or self-care (01) ==
LOC: ER 18:06
DX: R05 Cough (principal); R06.2 Wheezing; R68.89 Other general symptoms and signs; Z88.0 Allergy status to penicillin; Z88.3 Allergy status to other anti-infective agents; Z88.2 Allergy status to sulfonamides; I48.91 Unspecified atrial fibrillation; J44.9 Chronic obstructive pulmonary disease, unspecified; Z90.710 Acquired absence of both cervix and uterus
CPT/HCPCS: 93005; 94640; 99284; 96360; 36415; 85025; 80053; 83880; 71045; 93010; A9270 ×3; J7050; J7512; J7620